=== PATIENT | male | born 1930 | race Hispanic/Latino ===

== ENCOUNTER 2017-08-05 06:00 | Day surgery (SDC) | payer MEDICARE ==
[2017-07-31 14:44] VITALS: BP 129/66
[2017-07-31 14:50] LABS: HEMATOCRIT 35.6 % (42-54); MEAN CORPUSCULAR HEMOGLOBIN 29.1 pg (27.0-33.0); MEAN CORPUSCULAR HGB CONC 33.5 g/dL (32.0-36.0); MEAN CORPUSCULAR VOLUME 86.9 fL (79-99); PLATELET COUNT (AUTO) 189 K/uL (130-400); RED CELL DISTRIBUTION WIDTH 16.2 % (11.0-15.5); WHITE BLOOD COUNT (AUTO) 7.2 K/uL (4.8-10.8)
[2017-07-31 14:51] LABS: APPEARANCE,URINE CLOUDY (CLEAR); BILIRUBIN,URINE LARGE (NEGATIVE); GLUCOSE, URINE (UA) 100 mg/dL (NEGATIVE); KETONES,URINE 15 mg/dL (NEGATIVE); LEUKOCYTE ESTERASE ,URINE LARGE (NEGATIVE); NITRATE,URINE POSITIVE (NEGATIVE); OCCULT BLOOD,URINE LARGE (NEGATIVE); PROTEIN,URINE >=300 (NEGATIVE); UROBILINOGEN,URINE >=8.0 mg/dL (0.2-1.0)
[2017-07-31 14:52] LABS: COLOR,URINE RED (YELLOW)
[2017-07-31 14:59] LABS: CREATININE 1.5 mg/dL (0.5-1.5); POTASSIUM 3.5 mmol/L (3.5-5.1)
[2017-07-31 15:02] LABS: RBC,URINE Full Field /HPF (0-1); WBC,URINE 0-1 /HPF (0-1)
[2017-07-31 15:03] LABS: BACTERIA,URINE Rare /HPF (None Seen); SQUAMOUS EPITHELIAL CELL,UR Rare /LPF (0-2)
[2017-07-31 15:03] LABS: INR 0.94 (0.85-1.15); PARTIAL THROMBOPLASTIN TIME 26.8 SEC (26.3-35.5); PROTHROMBIN TIME 9.9 SEC (9.6-11.6)
[~2017-08-05] VITALS: Ht 165.1 cm; Wt 77.0 kg
[2017-08-05] VITALS (15 sets, daily range): BP systolic 93–139; BP diastolic 53–74
[~2017-08-05 06:00] MED LIST: ASCO500C18 PO; CHOL200013 PO; FERROUS SULFATE PO; LEVO75TA10 PO; MELA10CA2 PO; MEMA5TAB15 PO; MIDO5TAB PO; PRAV20TA4 PO; RIVA4.6T TD; VITAMIN B12 PO; ZOLP5TAB8 PO
[2017-08-05] MEDS: MEROPENEM 1 GM VIAL IVP SCH ×2 (06:00→06:50)
[2017-08-05] MEDS ORDERED: ISOVUE-370 50ML VIAL IV ONE (06:47)
[2017-08-05] MEDS ORDERED: GLYCOPYRROLATE 0.2 MG/ML 5 ML VIAL ONE (06:55)
[2017-08-05] MEDS ORDERED: ONDANSETRON HCL 4 MG/2 ML VIAL ONE (06:55)
[2017-08-05] MEDS ORDERED: DEXAMETHASONE SOD PHOSPHATE 10MG/ML 1ML VIAL ONE (06:55)
[2017-08-05] MEDS ORDERED: SUCCINYLCHOLINE 200MG/10ML SYR ONE (06:55)
[2017-08-05] MEDS ORDERED: LIDOCAINE PF 2% 5ML ABBOJECT ONE (06:55)
[2017-08-05] MEDS ORDERED: FENTANYL CITRATE PF 50 MCG/1 ML 2ML VIAL ONE (06:56)
[2017-08-05] MEDS ORDERED: MIDAZOLAM HCL 1 MG/ML 2ML VIAL ONE (06:56)
[2017-08-05] MEDS ORDERED: PROPOFOL 10 MG/ML 20ML VIAL IV ONE (06:56)
[2017-08-05] MEDS: LACTATED RINGERS 1000ML 1,000 ML IV SCH ×2 (07:45→07:48)
[2017-08-05] MEDS ORDERED: MORPHINE SULFATE 2 MG/ML 1ML SYG ONE (07:59)
[2017-09-29] MEDS ORDERED: LEVOTHYROXINE PO (10:41)
== END 2017-08-05 09:50 | disposition home or self-care (01) ==
LOC: DAH 06:00
PROVIDERS: ATTEND Urology
DX: N21.0 Calculus in bladder (principal); N13.39 Other hydronephrosis; N28.9 Disorder of kidney and ureter, unspecified; C61 Malignant neoplasm of prostate; G30.8 Other Alzheimer's disease; N17.9 Acute kidney failure, unspecified; I10 Essential (primary) hypertension; N39.0 Urinary tract infection, site not specified; Z79.899 Other long term (current) drug therapy; I73.9 Peripheral vascular disease, unspecified
CPT/HCPCS: 36415; 52332; 71046; 74420; 80048; 81001; 85027; 85610; 85730; 87088 ×3; 88300; 93005; A4354; A4358; A4600; C1758 ×2; C1769; C2617 ×2; J0330; J1100; J2001; J2185; J2250; J2405; J2704; J3010; J3490; J7030; J7120 ×2; Q9967

== ENCOUNTER 2017-09-30 05:30 | Day surgery (SDC) | payer MEDICARE ==
[2017-09-29 10:07] VITALS: BP 123/70
[2017-09-29 10:14] LABS: APPEARANCE,URINE CLOUDY (CLEAR); BILIRUBIN,URINE SMALL (NEGATIVE); COLOR,URINE RED (YELLOW); GLUCOSE, URINE (UA) NEGATIVE (NEGATIVE); KETONES,URINE NEGATIVE (NEGATIVE); LEUKOCYTE ESTERASE ,URINE LARGE (NEGATIVE); NITRATE,URINE NEGATIVE (NEGATIVE); OCCULT BLOOD,URINE LARGE (NEGATIVE); PH,URINE 7.5 (5.0-8.0); PROTEIN,URINE 100 (NEGATIVE); UROBILINOGEN,URINE 0.2 mg/dL (0.2-1.0)
[2017-09-29 10:17] LABS: HEMATOCRIT 34.3 % (42-54); MEAN CORPUSCULAR HEMOGLOBIN 29.6 pg (27.0-33.0); MEAN CORPUSCULAR HGB CONC 33.9 g/dL (32.0-36.0); MEAN CORPUSCULAR VOLUME 87.3 fL (79-99); PLATELET COUNT (AUTO) 191 K/uL (130-400); RED BLOOD CELL COUNT(AUTO) 3.93 MIL/uL (4.50-6.20); RED CELL DISTRIBUTION WIDTH 16.8 % (11.0-15.5); WHITE BLOOD COUNT (AUTO) 11.6 K/uL (4.8-10.8)
[2017-09-29 10:19] LABS: RBC,URINE TNTC /HPF (0-1)
[2017-09-29 10:20] LABS: BACTERIA,URINE Rare /HPF (None Seen); SQUAMOUS EPITHELIAL CELL,UR Rare /HPF (0-2); WBC,URINE 51-100 /HPF (0-1)
[2017-09-29 10:23] LABS: CREATININE 1.9 mg/dL (0.5-1.5); POTASSIUM 3.8 mmol/L (3.5-5.1)
[2017-09-29 10:26] LABS: INR 0.97 (0.85-1.15); PARTIAL THROMBOPLASTIN TIME 27.1 SEC (26.3-35.5); PROTHROMBIN TIME 10.2 SEC (9.6-11.6)
[~2017-09-30] VITALS: Ht 165.1 cm; Wt 74.8 kg
[2017-09-30] VITALS (16 sets, daily range): BP systolic 93–133; BP diastolic 42–78
[~2017-09-30 05:30] MED LIST changes: -LEVO75TA10 PO; +LEVOTHYROXINE PO; -MELA10CA2 PO; -MIDO5TAB PO; -VITAMIN B12 PO
[2017-09-30] MEDS: GENTAMICIN SULFATE 240 MG in SODIUM CHLORIDE 0.9% 100 ML IV SCH ×2 (06:00→07:20)
[2017-09-30] MEDS: ZOSYN 3.375GM+NS 50ML 50 ML IV SCH ×2 (06:00→07:00)
[2017-09-30] MEDS: LACTATED RINGERS 1000ML 1,000 ML IV SCH ×2 (06:48→07:00)
[2017-09-30] MEDS ORDERED: FENTANYL CITRATE PF 50 MCG/1 ML 2ML VIAL ONE (06:53)
[2017-09-30] MEDS ORDERED: PROPOFOL 10 MG/ML 20ML VIAL IV ONE (06:53)
[2017-09-30] MEDS ORDERED: ISOVUE-370 50ML VIAL IV ONE (07:02)
[2017-09-30] MEDS ORDERED: NEOSTIGMINE 5MG/5ML SYR IV ONE (07:11)
[2017-09-30] MEDS ORDERED: ROCURONIUM BROMIDE 10MG/1ML 5ML VL ONE (07:11)
[2017-09-30] MEDS ORDERED: PHENYLEPHRINE HCL 10 MG/ML 1ML VIAL IV ONE (07:11)
[2017-09-30] MEDS ORDERED: SODIUM CHLORIDE 0.9% 10 ML VIAL ONE (07:11)
[2017-09-30] MEDS ORDERED: LIDOCAINE PF 2% 5ML ABBOJECT ONE (07:11)
[2017-09-30] MEDS ORDERED: GLYCOPYRROLATE 0.2 MG/ML 5 ML VIAL ONE (07:11)
[2017-09-30] MEDS ORDERED: MEPERIDINE-PF 25 MG/ML SYG ONE (08:39)
[2017-09-30] MEDS ORDERED: ACETAMINOPHEN-CODEINE 300/30MG TAB PO PRN (10:45)
== END 2017-09-30 11:00 | disposition home or self-care (01) ==
LOC: DAH 05:30
PROVIDERS: ATTEND Urology
DX: N13.30 Unspecified hydronephrosis (principal); C61 Malignant neoplasm of prostate; I10 Essential (primary) hypertension; G30.9 Alzheimer's disease, unspecified; D41.4 Neoplasm of uncertain behavior of bladder
CPT/HCPCS: 36415; 52204; 52332; 74420; 80048; 81001; 85027; 85610; 85730; 87088 ×3; 87186 ×2; 88304; 93005; A4354; A4358; A4930; A5113; C1758; C1769 ×3; C1877; C2617; J1580; J2001; J2175; J2370; J2543; J2704; J2710; J3010; J3490 ×2; J7030; Q9967

== ENCOUNTER 2017-11-18 05:30 | Day surgery (SDC) | payer MEDICARE ==
[2017-11-14 11:17] LABS: HEMATOCRIT 37.5 % (42-54); MEAN CORPUSCULAR HEMOGLOBIN 29.1 pg (27.0-33.0); MEAN CORPUSCULAR HGB CONC 33.1 g/dL (32.0-36.0); MEAN CORPUSCULAR VOLUME 87.7 fL (79-99); PLATELET COUNT (AUTO) 233 K/uL (130-400); RED BLOOD CELL COUNT(AUTO) 4.27 MIL/uL (4.50-6.20); RED CELL DISTRIBUTION WIDTH 16.6 % (11.0-15.5); WHITE BLOOD COUNT (AUTO) 8.5 K/uL (4.8-10.8)
[2017-11-14 11:23] VITALS: BP 105/60
[2017-11-14 11:31] LABS: CREATININE 1.3 mg/dL (0.5-1.5); POTASSIUM 3.9 mmol/L (3.5-5.1)
[2017-11-14 11:33] LABS: BILIRUBIN,URINE LARGE (NEGATIVE); GLUCOSE, URINE (UA) 100 mg/dL (NEGATIVE); KETONES,URINE 15 mg/dL (NEGATIVE); LEUKOCYTE ESTERASE ,URINE LARGE (NEGATIVE); NITRATE,URINE POSITIVE (NEGATIVE); OCCULT BLOOD,URINE LARGE (NEGATIVE); PH,URINE 6.5 (5.0-8.0); PROTEIN,URINE >=300 (NEGATIVE)
[2017-11-14 11:35] LABS: APPEARANCE,URINE CLOUDY (CLEAR); COLOR,URINE RED (YELLOW)
[2017-11-14 11:36] LABS: INR 0.96 (0.85-1.15); PARTIAL THROMBOPLASTIN TIME 27.3 SEC (26.3-35.5); PROTHROMBIN TIME 10.1 SEC (9.6-11.6)
[2017-11-14 12:08] LABS: BACTERIA,URINE Moderate /HPF (None Seen); RBC,URINE TNTC /HPF (0-1); WBC,URINE 26-50 /HPF (0-1)
[2017-11-18] VITALS (16 sets, daily range): BP systolic 100–135; BP diastolic 59–75
[~2017-11-18] VITALS: Ht 165.1 cm; Wt 72.6 kg
[2017-11-18] MEDS: ZOSYN 3.375GM+NS 50ML 50 ML IV SCH ×2 (05:00→06:50)
[2017-11-18] MEDS: LACTATED RINGERS 1000ML 1,000 ML IV SCH ×2 (06:23→06:50)
[2017-11-18] MEDS: GENTAMICIN SULFATE 240 MG in SODIUM CHLORIDE 0.9% 100 ML IV SCH ×2 (06:26→06:30)
[2017-11-18] MEDS ORDERED: ISOVUE-370 50ML VIAL IV ONE (06:45)
[2017-11-18] MEDS ORDERED: ONDANSETRON HCL 4 MG/2 ML VIAL ONE (06:51)
[2017-11-18] MEDS ORDERED: MIDAZOLAM HCL 1 MG/ML 2ML VIAL ONE (06:51)
[2017-11-18] MEDS ORDERED: LIDOCAINE PF 2% 5ML ABBOJECT ONE (06:51)
[2017-11-18] MEDS ORDERED: DEXAMETHASONE SOD PHOSPHATE 10MG/ML 1ML VIAL ONE (06:51)
[2017-11-18] MEDS ORDERED: GLYCOPYRROLATE 0.2 MG/ML 5 ML VIAL ONE (06:51)
[2017-11-18] MEDS ORDERED: PROPOFOL 10 MG/ML 20ML VIAL IV ONE (06:52)
[2017-11-18] MEDS ORDERED: FENTANYL CITRATE PF 50 MCG/1 ML 2ML VIAL ONE (06:52)
== END 2017-11-18 09:15 | disposition home or self-care (01) ==
LOC: DAH 05:30
PROVIDERS: ATTEND Urology
DX: C67.9 Malignant neoplasm of bladder, unspecified (principal); N13.30 Unspecified hydronephrosis; Z98.890 Other specified postprocedural states; Z79.899 Other long term (current) drug therapy; I10 Essential (primary) hypertension; G30.9 Alzheimer's disease, unspecified; F02.80 Dementia in other diseases classified elsewhere, unspecified severity, without behavioral disturbance, psychotic disturbance, mood disturbance, and anxiety; Z85.46 Personal history of malignant neoplasm of prostate; E66.9 Obesity, unspecified; I35.8 Other nonrheumatic aortic valve disorders; E03.9 Hypothyroidism, unspecified; E78.5 Hyperlipidemia, unspecified; D50.8 Other iron deficiency anemias
CPT/HCPCS: 36415; 51600; 52332; 71046; 74420; 80048; 81001; 85027; 85610; 85730; 87088 ×3; 87186 ×2; 93005; A4358; A4600; A4930; C1758; C1769; C2617 ×2; J1100; J1580; J2001; J2250; J2405; J2543; J2704; J3010; J3490; J7120 ×2; Q9967

== ENCOUNTER → 2018-06-12 | Outpatient (CLI) | payer MEDICARE ==
[~2018-06-12] VITALS: Ht 165.1 cm; Wt 73.9 kg
[~2018-06-12] MED LIST changes: -ASCO500C18 PO; -CHOL200013 PO; +ESCI10TA54 PO; +FERR-82 PO; -FERROUS SULFATE PO; +FURO20TA4 PO; +LEVO88TA7 PO; -LEVOTHYROXINE PO; +MELA10TA7 PO; +MIDO5TAB PO; +MULT1TAB66 PO; +MVI PO; -RIVA4.6T TD; +TRAZ-185 PO; -ZOLP5TAB8 PO
[2018-06-12 12:03] LABS: APPEARANCE,URINE CLEAR (CLEAR); BILIRUBIN,URINE SMALL (NEGATIVE); COLOR,URINE YELLOW (YELLOW); GLUCOSE, URINE (UA) NEGATIVE (NEGATIVE); HEMATOCRIT 40.8 % (42-54); KETONES,URINE NEGATIVE (NEGATIVE); LEUKOCYTE ESTERASE ,URINE MODERATE (NEGATIVE); MEAN CORPUSCULAR HEMOGLOBIN 28.7 pg (27.0-33.0); MEAN CORPUSCULAR HGB CONC 32.6 g/dL (32.0-36.0); MEAN CORPUSCULAR VOLUME 87.9 fL (79-99); NITRATE,URINE POSITIVE (NEGATIVE); OCCULT BLOOD,URINE LARGE (NEGATIVE); PLATELET COUNT (AUTO) 177 K/uL (130-400); PROTEIN,URINE >=300 (NEGATIVE); RED BLOOD CELL COUNT(AUTO) 4.64 MIL/uL (4.50-6.20); RED CELL DISTRIBUTION WIDTH 17.1 % (11.0-15.5); WHITE BLOOD COUNT (AUTO) 6.9 K/uL (4.8-10.8)
[2018-06-12 12:06] VITALS: BP 137/74
[2018-06-12 12:12] LABS: CREATININE 1.4 mg/dL (0.5-1.5); POTASSIUM 3.4 mmol/L (3.5-5.1); WBC,URINE TNTC /HPF (0-1)
[2018-06-12 12:13] LABS: BACTERIA,URINE Few /HPF (None Seen); SQUAMOUS EPITHELIAL CELL,UR 0-2 /HPF (0-2)
[2018-06-12 12:20] LABS: INR 0.97 (0.85-1.15); PARTIAL THROMBOPLASTIN TIME 28.9 SEC (26.3-35.5); PROTHROMBIN TIME 10.2 SEC (9.6-11.6)
== END ==
LOC: DAH 10:00 → EDSTATUS 11:30
PROVIDERS: ATTEND Urology
DX: Z01.818 Encounter for other preprocedural examination (principal)
CPT/HCPCS: 36415; 71046; 80048; 81001; 85027; 85610; 85730; 87088; 93005

== ENCOUNTER 2018-06-23 08:09 | Day surgery (SDC) | payer MEDICARE ==
[2018-06-23] VITALS (15 sets, daily range): BP systolic 100–127; BP diastolic 50–69
[~2018-06-23] VITALS: Ht 165.1 cm; Wt 73.9 kg
[~2018-06-23 08:09] MED LIST changes: -FURO20TA4 PO; -MVI PO
[2018-06-23] MEDS: ZOSYN 3.375GM+NS 50ML 50 ML IV SCH ×2 (08:30→12:50)
[2018-06-23] MEDS: GENTAMICIN SULFATE 240 MG in SODIUM CHLORIDE 0.9% 100 ML IV SCH ×2 (09:30→12:35)
[2018-06-23] MEDS: LACTATED RINGERS 1000ML 1,000 ML IV SCH ×2 (09:34→12:13)
--- NOTE | 2018-06-23 09:47 | NUR ---
VALUABLES: CLOTHING GIVEN TO FAMILY. NO OTHER VALUABLES BROUGHT TO HOSPITAL.
[2018-06-23] MEDS ORDERED: IOHEXOL-350 50ML VIAL IV ONE (10:15)
[2018-06-23] MEDS ORDERED: LIDOCAINE PF 2% 5ML ABBOJECT ONE ×3 (12:12→12:51)
[2018-06-23] MEDS ORDERED: DEXAMETHASONE SOD PHOSPHATE 10MG/ML 1ML VIAL ONE (12:12)
[2018-06-23] MEDS ORDERED: GLYCOPYRROLATE 1 MG/5 ML SYRINGE ONE (12:12)
[2018-06-23] MEDS ORDERED: ROCURONIUM 10MG/1ML SYR 10 MG/ML ML ONE ×2 (12:13→12:51)
[2018-06-23] MEDS ORDERED: PROPOFOL 10 MG/ML 20ML VIAL IV ONE ×2 (12:13→12:50)
[2018-06-23] MEDS ORDERED: NEOSTIGMINE 5MG/5ML SYR IV ONE (12:13)
[2018-06-23] MEDS ORDERED: MIDAZOLAM HCL 1 MG/ML 2ML VIAL ONE (12:13)
[2018-06-23] MEDS ORDERED: FENTANYL CITRATE PF 50 MCG/1 ML 2ML VIAL ONE (12:13)
[2018-06-23] MEDS ORDERED: EPHEDRINE SULFATE 50 MG/ML AMPULE ONE (12:35)
[2018-06-23] MEDS ORDERED: SUCCINYLCHOLINE CHLORIDE 20 MG/ML 10 ML VIAL ONE (12:51)
--- NOTE | 2018-06-23 15:30 | NUR ---
ASSESSMENT RECEIVED PT FROM PACU STAFF Caroline JACINTO RN. PT [id number]. 18FR FC DRAINING TO GRAVITY AT BEDSIDE WITH CLEAR PINK URINE IN BAG. DENIES ANY DISCOMFORT AT THIS TIME.
--- NOTE | 2018-06-23 16:24 | NUR ---
DISCHARGE PTS AND DAUGHTER GIVEN POST OP INSTRUCTIONS ON CHANGING DARLING TO LEG BAG USING ASEPTIC TECHNIQUE. BOTH VERBALIZED UNDERSTANDING. PRESCRIPTION GIVEN TO . NO OTHER QUESTIONS AT THIS TIME.
== END 2018-06-23 16:30 | disposition home or self-care (01) ==
LOC: DAH 08:09
PROVIDERS: ATTEND Urology
DX: N13.30 Unspecified hydronephrosis (principal); N35.919 Unspecified urethral stricture, male, unspecified site; I10 Essential (primary) hypertension; C61 Malignant neoplasm of prostate; Z79.899 Other long term (current) drug therapy; G30.9 Alzheimer's disease, unspecified; F02.80 Dementia in other diseases classified elsewhere, unspecified severity, without behavioral disturbance, psychotic disturbance, mood disturbance, and anxiety
CPT/HCPCS: 52332; 74420; 87071 ×2; 87077 ×3; 87186 ×3; 87205 ×2; A4358; A4600; C1726; C1758; C1769; C2617; J0330; J1100; J1580; J2001 ×3; J2543; J2704 ×2; J2710; J3010; J3490 ×2; J7030; J7120; Q9967; A4218; J2250

== ENCOUNTER 2018-08-18 07:03 | Day surgery (SDC) | payer MEDICARE ==
[2018-08-14 10:55] LABS: BASOPHILS % (AUTO) 1.2 % (0.0-5.0); EOSINOPHILS % (AUTO) 4.1 % (0.0-8.0); LYMPHOCYTES % (AUTO) 15.4 % (21.0-51.0); MEAN CORPUSCULAR HEMOGLOBIN 29.4 pg (27.0-33.0); MEAN CORPUSCULAR HGB CONC 32.8 g/dL (32.0-36.0); MEAN CORPUSCULAR VOLUME 89.6 fL (79-99); MONOCYTES % (AUTO) 10.7 % (3.0-13.0); NEUTROPHILS % (AUTO) 68.6 % (40.0-77.0); PLATELET COUNT (AUTO) 177 K/uL (130-400); RED BLOOD CELL COUNT(AUTO) 4.69 MIL/uL (4.50-6.20); RED CELL DISTRIBUTION WIDTH 17.7 % (11.0-15.5); WHITE BLOOD COUNT (AUTO) 5.8 K/uL (4.8-10.8)
[2018-08-14 11:03] LABS: APPEARANCE,URINE TURBID (CLEAR); BILIRUBIN,URINE NEGATIVE (NEGATIVE); COLOR,URINE YELLOW (YELLOW); GLUCOSE, URINE (UA) NEGATIVE (NEGATIVE); KETONES,URINE NEGATIVE (NEGATIVE); LEUKOCYTE ESTERASE ,URINE LARGE (NEGATIVE); NITRATE,URINE POSITIVE (NEGATIVE); OCCULT BLOOD,URINE LARGE (NEGATIVE); PROTEIN,URINE 100 (NEGATIVE); UROBILINOGEN,URINE 0.2 mg/dL (0.2-1.0)
[2018-08-14 11:05] LABS: INR 0.99 (0.85-1.15); PARTIAL THROMBOPLASTIN TIME 29.6 SEC (26.3-35.5); PROTHROMBIN TIME 10.4 SEC (9.6-11.6)
[2018-08-14 11:08] LABS: CREATININE 1.4 mg/dL (0.5-1.5); POTASSIUM 3.8 mmol/L (3.5-5.1)
[2018-08-14 11:20] LABS: BACTERIA,URINE Few /HPF (None Seen); RBC,URINE 51-100 /HPF (0-1); SQUAMOUS EPITHELIAL CELL,UR Rare /HPF (0-2); WBC,URINE TNTC /HPF (0-1)
--- NOTE | 2018-08-17 17:56 | NUR ---
INFORMED DR. MOISE REGARDING ELEVATED URINE LABS, NO NEW ORDERS RECEIVED, OK TO CONTINUE WITH PLANNED PROCEDURE.
[2018-08-18] VITALS (14 sets, daily range): BP systolic 103–136; BP diastolic 51–89
[~2018-08-18] VITALS: Ht 167.6 cm; Wt 70.9 kg
[~2018-08-18 07:03] MED LIST changes: +GENTAMICIN SULFATE 240 MG in SODIUM CHLORIDE 0.9% 100 ML IV SCH; +LACTATED RINGERS 1000ML 1,000 ML IV SCH; +ZOSYN 3.375GM+NS 50ML 50 ML IV SCH
[2018-08-18] MEDS ORDERED: ESCI10TA54 PO (08:45)
[2018-08-18] MEDS ORDERED: FERR325T22 PO (08:45)
[2018-08-18] MEDS ORDERED: LEVO75TA10 PO (08:45)
[2018-08-18] MEDS ORDERED: IRON PO (08:52)
[2018-08-18] MEDS ORDERED: iron (08:52)
[2018-08-18] MEDS ORDERED: IOHEXOL-350 50ML VIAL IV ONE (09:45)
[2018-08-18] MEDS ORDERED: FENTANYL CITRATE PF 50 MCG/1 ML 2ML VIAL ONE (10:17)
[2018-08-18] MEDS ORDERED: PROPOFOL 10 MG/ML 20ML VIAL IV ONE (10:17)
[2018-08-18] MEDS ORDERED: LIDOCAINE PF 2% 5ML ABBOJECT ONE (10:18)
[2018-08-18] MEDS ORDERED: ROCURONIUM 10MG/1ML SYR 10 MG/ML ML ONE (10:19)
[2018-08-18] MEDS ORDERED: EPHEDRINE SULFATE 50 MG/ML AMPULE ONE (10:50)
--- NOTE | 2018-08-18 12:23 | NUR ---
RECEIVE PT RECEIVED FROM PACU VIA STRETCHER AWAKE ALERT ORIENTED TO NAME AND DATE OF . DARLING CATH 18FR IN [address] DRAINING BLOOD TINGE URINE, NO CLOTS NOTED. ABDOMEN SOFT, BLADDER NOT DISTENDED. CALL ACEVEDO WITHIN REACH, WILL CALL FOR FAMILY TO COME IN TO ROOM. ENCOURAGED TO DRINK FLUIDS. TOLERATING WELL.
--- NOTE | 2018-08-18 13:05 | NUR ---
DISCHARGE PT DISCHARGED VIA WHEELCHAIR WITH DAUGHTER BRENDA. DARLING CATHETER CARE INSTRUCTIONS GIVEN/DEMONSTRATED TO DAUGHTER, DARLING BAG CHANGED TO LEG BAG, DRAINING BLOOD TINGE URINE, NO CLOTS NOTED, SECURED DARLING CATH IN PLACE. DISCHARGE INSTRUCTIONS GIVEN TO DAUGHTER/POA BRENDA, VERBALIZED UNDERSTANDING. ALSO INSTRUCTED BRENDA TO ENCOURAGE PT TO DRINK ORAL FLUIDS TOLERATED SO TO CLEAR UP URINE AND PREVENT CLOTS. VERBALIZED UNDERSTANDING.
== END 2018-08-18 13:05 | disposition home or self-care (01) ==
LOC: DAH 07:03
PROVIDERS: ATTEND Urology
DX: C67.9 Malignant neoplasm of bladder, unspecified (principal); C61 Malignant neoplasm of prostate; N13.30 Unspecified hydronephrosis; Z79.899 Other long term (current) drug therapy; Z98.890 Other specified postprocedural states; G30.9 Alzheimer's disease, unspecified; F02.80 Dementia in other diseases classified elsewhere, unspecified severity, without behavioral disturbance, psychotic disturbance, mood disturbance, and anxiety; I10 Essential (primary) hypertension; N39.0 Urinary tract infection, site not specified; Z79.01 Long term (current) use of anticoagulants
CPT/HCPCS: 36415; 52332; 71046; 74420; 80048; 81001; 85025; 85610; 85730; 87071 ×2; 87077 ×4; 87088; 87186 ×4; 87205 ×2; 93005; A4354; A4358; C1758 ×2; C1769 ×2; C2617; J1580; J2001; J2543; J2704; J3010; J3490; J7120; Q9967

== ENCOUNTER 2018-10-20 16:03 | Day surgery (SDC) | payer MEDICARE ==
[2018-10-19 09:25] VITALS: BP 90/54
[2018-10-19 09:52] LABS: HEMATOCRIT 42.8 % (42-54); MEAN CORPUSCULAR HEMOGLOBIN 30.8 pg (27.0-33.0); MEAN CORPUSCULAR HGB CONC 33.5 g/dL (32.0-36.0); PLATELET COUNT (AUTO) 186 K/uL (130-400); RED BLOOD CELL COUNT(AUTO) 4.65 MIL/uL (4.50-6.20); RED CELL DISTRIBUTION WIDTH 15.5 % (11.0-15.5); WHITE BLOOD COUNT (AUTO) 8.7 K/uL (4.8-10.8)
[2018-10-19 09:53] LABS: APPEARANCE,URINE TURBID (CLEAR); BILIRUBIN,URINE NEGATIVE (NEGATIVE); COLOR,URINE YELLOW (YELLOW); GLUCOSE, URINE (UA) NEGATIVE (NEGATIVE); KETONES,URINE NEGATIVE (NEGATIVE); LEUKOCYTE ESTERASE ,URINE MODERATE (NEGATIVE); NITRATE,URINE POSITIVE (NEGATIVE); OCCULT BLOOD,URINE LARGE (NEGATIVE); PH,URINE 8.5 (5.0-8.0); PROTEIN,URINE 100 mg/dL (NEGATIVE); UROBILINOGEN,URINE 0.2 mg/dL (0.2-1.0)
[2018-10-19 10:00] LABS: CREATININE 1.2 mg/dL (0.5-1.5); POTASSIUM 3.4 mmol/L (3.5-5.1)
[2018-10-19 10:03] LABS: BACTERIA,URINE Many /HPF (None Seen); MUCUS,URINE Few LPF (None Seen); SQUAMOUS EPITHELIAL CELL,UR Few /HPF (0-2); WBC,URINE TNTC /HPF (0-1)
[2018-10-19 10:04] LABS: INR 1.01 (0.85-1.15); PROTHROMBIN TIME 10.6 SEC (9.6-11.6)
--- NOTE | 2018-10-19 14:00 | NUR ---
EKG ABNORMAL EKG REPORTED TO DR. WATTERS, NO FURTHER ORDERS GIVEN, MAY PROCEED WITH PLANNED PROCEDURE.
--- NOTE | 2018-10-19 15:30 | NUR ---
CONTACT PRECAUTION PT HAS HX OF ESBL-GNB, E. COLI. PT PLACED ON ISOLATION CONTACT. SHARLENE STANFORD, OR PUBLIC HEALTH DIRECTOR, CATY COOPER OF INFECTION CONTROL NOTIFIED. ALSO NOTIFIED DR. MOISE'S PT, SPOKE TO KONRAD, STATED SHE WILL INFORM DR. MOISE. Addendum: 10/20/18 at 1647 by JUAN GARIBAY RN RN TYPO ERROR- ALSO NOTIFIED DR. MOISE'S OFFICE (INSTEAD OF DR. MOISE'S PT)
--- NOTE | 2018-10-19 16:53 | NUR ---
SPOKE TO KONRAD AT OFFICE. ABNORMAL UA AND POTASSIUM REPORTED TO DR. MOISE, NO NEW ORDERS, OK TO PROCEED WITH PROCEDURE.
[2018-10-20] VITALS (15 sets, daily range): BP systolic 100–162; BP diastolic 50–72
[~2018-10-20] VITALS: Ht 163.8 cm; Wt 69.0 kg
[2018-10-20] MEDS: ZOSYN 3.375GM+NS 50ML 50 ML IV SCH ×3 (11:30→11:45)
[2018-10-20] MEDS: GENTAMICIN SULFATE 240 MG in SODIUM CHLORIDE 0.9% 100 ML IV SCH ×3 (11:30→12:10)
[2018-10-20 12:33] LABS: APPEARANCE,URINE CLOUDY (CLEAR); BILIRUBIN,URINE NEGATIVE (NEGATIVE); GLUCOSE, URINE (UA) NEGATIVE (NEGATIVE); KETONES,URINE NEGATIVE (NEGATIVE); LEUKOCYTE ESTERASE ,URINE LARGE (NEGATIVE); NITRATE,URINE POSITIVE (NEGATIVE); OCCULT BLOOD,URINE LARGE (NEGATIVE); PROTEIN,URINE 100 mg/dL (NEGATIVE)
[2018-10-20 12:33] LABS: APPEARANCE,URINE CLOUDY (CLEAR); BILIRUBIN,URINE NEGATIVE (NEGATIVE); COLOR,URINE YELLOW (YELLOW); GLUCOSE, URINE (UA) NEGATIVE (NEGATIVE); KETONES,URINE NEGATIVE (NEGATIVE); LEUKOCYTE ESTERASE ,URINE LARGE (NEGATIVE); NITRATE,URINE POSITIVE (NEGATIVE); OCCULT BLOOD,URINE LARGE (NEGATIVE); PH,URINE 7.5 (5.0-8.0); PROTEIN,URINE 100 mg/dL (NEGATIVE); UROBILINOGEN,URINE 0.2 mg/dL (0.2-1.0)
[2018-10-20 12:35] LABS: COLOR,URINE ORANGE (YELLOW)
[2018-10-20 12:39] LABS: BACTERIA,URINE Many /HPF (None Seen); RBC,URINE TNTC /HPF (0-1); SQUAMOUS EPITHELIAL CELL,UR Rare /HPF (0-2)
[2018-10-20 12:40] LABS: WBC,URINE TNTC /HPF (0-1)
[2018-10-20 13:20] LABS: BACTERIA,URINE Moderate /HPF (None Seen); RBC,URINE 26-50 /HPF (0-1); SQUAMOUS EPITHELIAL CELL,UR 0-2 /HPF (0-2)
--- NOTE | 2018-10-20 14:02 | NUR ---
RECEIVE PT RECEIVED FROM PACU VIA STRETCHER AWAKE ALERT ORIENTED. PT STABLE. NOT IN ANY APPARENT DISTRESS. 18FR DARLING CATH IN PLACE DRAINING CLEAR LIGHT PINK URINE, NO CLOTS NOTED, 400 ML IN URINE BAG. CALLED DAUGHTER ROHIT TO COME IN TO ROOM WITH PT. CALL ACEVEDO WITHIN REACH.
--- NOTE | 2018-10-20 14:50 | NUR ---
DISCHARGE PT DISCHARGED VIA WHEELCHAIR WITH DAUGHTER. PT STABLE. NO COMPLAINTS MADE. DISCHARGE INSTRUCTIONS GIVEN TO DAUGHTER, ALSO DEMONSTRATED TO DAUGHTER ON DARLING CATH HOME CARE. VERBALIZED UNDERSTANDING. URINE BAG CHANGED TO LEG BAG PRIOR TO DISCHARGE, DRAINING LIGHT PINK URINE, CLEAR, NO CLOTS.
[~2018-10-20 16:03] MED LIST changes: +EPHEDRINE SULFATE 50 MG/ML AMPULE ONE; +FENTANYL CITRATE PF 50 MCG/1 ML 2ML VIAL ONE; -FERR-82 PO; -GENTAMICIN SULFATE 240 MG in SODIUM CHLORIDE 0.9% 100 ML IV SCH; +IOHEXOL-350 50ML VIAL IV ONE; +IRON PO; +LIDOCAINE PF 2% 5ML ABBOJECT ONE; +PROPOFOL 10 MG/ML 20ML VIAL IV ONE; -TRAZ-185 PO; -ZOSYN 3.375GM+NS 50ML 50 ML IV SCH
== END 2018-10-20 16:04 | disposition home or self-care (01) ==
LOC: DAH 16:03
PROVIDERS: ATTEND Urology
DX: N35.814 Other anterior urethral stricture, male (principal); N13.39 Other hydronephrosis; G30.9 Alzheimer's disease, unspecified; F02.80 Dementia in other diseases classified elsewhere, unspecified severity, without behavioral disturbance, psychotic disturbance, mood disturbance, and anxiety; Z98.890 Other specified postprocedural states; I10 Essential (primary) hypertension; Z79.899 Other long term (current) drug therapy; Z79.01 Long term (current) use of anticoagulants
CPT/HCPCS: 36415; 52281; 74420; 80048; 81001 ×3; 85027; 85610; 85730; 87088; 93005; A4354; A4358; A4600; A4649; A5113; C1758 ×2; C1769 ×3; C2617; J1580; J2001; J2543 ×2; J2704; J3010; J3490; J7120 ×2; Q9967

== ENCOUNTER 2018-12-22 10:06 | Day surgery (SDC) | payer MEDICARE ==
[2018-12-18 11:00] LABS: HEMATOCRIT 40.6 % (42-54); MEAN CORPUSCULAR HEMOGLOBIN 30.2 pg (27.0-33.0); MEAN CORPUSCULAR HGB CONC 32.7 g/dL (32.0-36.0); MEAN CORPUSCULAR VOLUME 92.2 fL (79-99); PLATELET COUNT (AUTO) 271 K/uL (130-400); RED CELL DISTRIBUTION WIDTH 13.8 % (11.0-15.5); WHITE BLOOD COUNT (AUTO) 9.5 K/uL (4.8-10.8)
[2018-12-18 11:02] LABS: APPEARANCE,URINE TURBID (CLEAR); BILIRUBIN,URINE NEGATIVE (NEGATIVE); COLOR,URINE YELLOW (YELLOW); GLUCOSE, URINE (UA) NEGATIVE (NEGATIVE); KETONES,URINE NEGATIVE (NEGATIVE); LEUKOCYTE ESTERASE ,URINE LARGE (NEGATIVE); NITRATE,URINE NEGATIVE (NEGATIVE); OCCULT BLOOD,URINE LARGE (NEGATIVE); PH,URINE 7.5 (5.0-8.0); PROTEIN,URINE 100 mg/dL (NEGATIVE)
[2018-12-18 11:10] LABS: CREATININE 1.4 mg/dL (0.5-1.5); POTASSIUM 3.5 mmol/L (3.5-5.1)
[2018-12-18 11:14] VITALS: BP 119/67
[2018-12-18 11:35] LABS: BACTERIA,URINE Many /HPF (None Seen); WBC,URINE TNTC /HPF (0-1)
[2018-12-18 11:36] LABS: SQUAMOUS EPITHELIAL CELL,UR Rare /HPF (0-2)
[2018-12-18 11:39] LABS: INR 1.03 (0.85-1.15); PARTIAL THROMBOPLASTIN TIME 32.1 SEC (26.3-35.5); PROTHROMBIN TIME 10.8 SEC (9.6-11.6)
--- NOTE | 2018-12-21 16:00 | NUR ---
ekg abnormal ekg reported to Dr. Chakraborty. message left on his cell phone. awaiting for further orders if any
--- NOTE | 2018-12-21 16:00 | NUR ---
LABS ABNORMAL UA REPORTED TO DR. MOISE. MESSAGE LEFT WITH CAROL..
--- NOTE | 2018-12-21 16:06 | NUR ---
ekg as per Dr. Mylene preston to proceed with sx, no further orders given.
[~2018-12-22] VITALS: Ht 167.6 cm; Wt 68.7 kg
[2018-12-22] VITALS (18 sets, daily range): BP systolic 95–141; BP diastolic 54–78
[~2018-12-22 10:06] MED LIST changes: +ALPR0.255 PO; -EPHEDRINE SULFATE 50 MG/ML AMPULE ONE; -ESCI10TA54 PO; -FENTANYL CITRATE PF 50 MCG/1 ML 2ML VIAL ONE; +GENTAMICIN SULFATE 240 MG in SODIUM CHLORIDE 0.9% 100 ML IV SCH; -IOHEXOL-350 50ML VIAL IV ONE; -LACTATED RINGERS 1000ML 1,000 ML IV SCH; -LIDOCAINE PF 2% 5ML ABBOJECT ONE; -MULT1TAB66 PO; -PROPOFOL 10 MG/ML 20ML VIAL IV ONE
[2018-12-22] MEDS ORDERED: LACTATED RINGERS 1000ML 1,000 ML IV ONE (11:25)
[2018-12-22] MEDS: ZOSYN 3.375GM+NS 50ML 50 ML IV SCH ×2 (11:30→14:40)
[2018-12-22] MEDS ORDERED: IOHEXOL-350 50ML VIAL IV ONE (11:50)
[2018-12-22] MEDS ORDERED: LIDOCAINE PF 2% 5ML ABBOJECT ONE (14:14)
[2018-12-22] MEDS ORDERED: SUCCINYLCHOLINE 200MG/10ML SYR ONE ×2 (14:14→14:18)
[2018-12-22] MEDS ORDERED: DEXAMETHASONE SOD PHOSPHATE 10MG/ML 1ML VIAL ONE ×2 (14:14→14:18)
[2018-12-22] MEDS ORDERED: MIDAZOLAM HCL 1 MG/ML 2ML VIAL ONE (14:14)
[2018-12-22] MEDS ORDERED: FENTANYL CITRATE PF 50 MCG/1 ML 2ML VIAL ONE (14:15)
[2018-12-22] MEDS ORDERED: ONDANSETRON HCL 4 MG/2 ML VIAL ONE (14:15)
[2018-12-22] MEDS ORDERED: GLYCOPYRROLATE 1 MG/5 ML SYRINGE ONE (14:15)
[2018-12-22] MEDS ORDERED: ROCURONIUM 10MG/1ML SYR 10 MG/ML ML ONE (14:15)
[2018-12-22] MEDS ORDERED: PROPOFOL 10 MG/ML 20ML VIAL IV ONE (14:15)
[2018-12-22] MEDS ORDERED: NEOSTIGMINE 5MG/5ML SYR IV ONE (14:15)
--- NOTE | 2018-12-22 17:50 | NUR ---
PT DISCHARGED HOME, TOLERATING CLEAR LIQUIDS, AMBULATING WELL WITH STANDBY ASSISTANCE. PT DENIES ANY SEVERE PAIN, NAUSEA, OR DIZZINESS. DARLING CATHETER SWITCHED TO LEG BAG PRIOR TO DISCHARGE AND SECURED WELL WITH LEG STRAP. PT SENT HOME WITH DARLING FOR HOME USE. FAMILY INSTRUCTED IN DARLING CARE. DAUGHTER REPORTS BEING FAMILIAR WITH DARLING CARE. URINE CONTINUES TO BE RED TINTED. FAMILY REMINDED TO NOTIFY DR IF BLEEDING GOT WORSE/DARKER OR URINE BEGAN TO HAVE CLOTS. PRESCRIPTIONS GIVEN TO DAUGHTER.
== END 2018-12-22 17:50 | disposition home or self-care (01) ==
LOC: DAH 10:06
PROVIDERS: ATTEND Urology
DX: T83.89XA Other specified complication of genitourinary prosthetic devices, implants and grafts, initial encounter (principal); Y83.8 Other surgical procedures as the cause of abnormal reaction of the patient, or of later complication, without mention of misadventure at the time of the procedure; N13.30 Unspecified hydronephrosis; N35.819 Other urethral stricture, male, unspecified site; I10 Essential (primary) hypertension; G30.8 Other Alzheimer's disease; F02.80 Dementia in other diseases classified elsewhere, unspecified severity, without behavioral disturbance, psychotic disturbance, mood disturbance, and anxiety; F41.9 Anxiety disorder, unspecified; F32.9 Major depressive disorder, single episode, unspecified; C61 Malignant neoplasm of prostate; C67.9 Malignant neoplasm of bladder, unspecified; Z79.899 Other long term (current) drug therapy; Z98.890 Other specified postprocedural states; Z83.3 Family history of diabetes mellitus; Z82.49 Family history of ischemic heart disease and other diseases of the circulatory system
CPT/HCPCS: 36415; 52332; 74420; 80048; 85027; 81001; 85610; 85730; 87071; 87077 ×2; 87088; 87186 ×2; 87205; 93005; 96365; A4354; A4358; A4600; A4649; C1758 ×3; C1769 ×3; C2617; J0330 ×2; J1100 ×2; J1580; J2001; J2405; J2543; J2704; J2710; J3010; J3490; J7030; J7120; Q9967; J2250

== ENCOUNTER → 2019-01-14 | Outpatient (CLI) | payer MEDICARE ==
[~2019-01-14] MED LIST changes: -GENTAMICIN SULFATE 240 MG in SODIUM CHLORIDE 0.9% 100 ML IV SCH
== END | disposition home or self-care (01) ==
LOC: RAH 07:40
PROVIDERS: ATTEND Family Medicine
DX: G31.89 Other specified degenerative diseases of nervous system (principal); R90.82 White matter disease, unspecified; W19.XXXA Unspecified fall, initial encounter; Y93.89 Activity, other specified; Y92.89 Other specified places as the place of occurrence of the external cause; Y99.8 Other external cause status
CPT/HCPCS: 70450

== ENCOUNTER 2019-03-09 10:42 | Day surgery (SDC) | payer MEDICARE ==
[2019-03-08 11:02] LABS: APPEARANCE,URINE TURBID (CLEAR); BILIRUBIN,URINE NEGATIVE (NEGATIVE); COLOR,URINE YELLOW (YELLOW); GLUCOSE, URINE (UA) NEGATIVE (NEGATIVE); KETONES,URINE NEGATIVE (NEGATIVE); LEUKOCYTE ESTERASE ,URINE LARGE (NEGATIVE); NITRATE,URINE POSITIVE (NEGATIVE); OCCULT BLOOD,URINE LARGE (NEGATIVE); PH,URINE 6.5 (5.0-8.0); PROTEIN,URINE 100 mg/dL (NEGATIVE); UROBILINOGEN,URINE 0.2 mg/dL (0.2-1.0)
[2019-03-08 11:03] LABS: MEAN CORPUSCULAR HEMOGLOBIN 30.4 pg (27.0-33.0); MEAN CORPUSCULAR HGB CONC 33.3 g/dL (32.0-36.0); MEAN CORPUSCULAR VOLUME 91.3 fL (79-99); PLATELET COUNT (AUTO) 158 K/uL (130-400); RED BLOOD CELL COUNT(AUTO) 4.38 MIL/uL (4.50-6.20); RED CELL DISTRIBUTION WIDTH 16.3 % (11.0-15.5); WHITE BLOOD COUNT (AUTO) 7.3 K/uL (4.8-10.8)
[2019-03-08 11:16] VITALS: BP 93/54
[2019-03-08 11:19] LABS: CREATININE 1.6 mg/dL (0.5-1.5); POTASSIUM 3.5 mmol/L (3.5-5.1)
[2019-03-08 11:29] LABS: BACTERIA,URINE Many /HPF (None Seen); SQUAMOUS EPITHELIAL CELL,UR Few /HPF (0-2); WBC,URINE TNTC /HPF (0-1)
[2019-03-08 11:45] LABS: INR 1.01 (0.85-1.15); PARTIAL THROMBOPLASTIN TIME 27.5 SEC (26.3-35.5); PROTHROMBIN TIME 10.6 SEC (9.6-11.6)
--- NOTE | 2019-03-08 12:10 | NUR ---
ABNORMAL EKG INFORMED DR WATTERS REGARDING PATIENT'S ABNORMAL EKG. PER DR WATTERS, EKG LOOKS OK AND MAY PROCEED WITH SCHEDULED SURGERY.
[2019-03-08] MEDS: GENTAMICIN SULFATE 240 MG in SODIUM CHLORIDE 0.9% 100 ML IV SCH (12:30)
--- NOTE | 2019-03-08 16:02 | NUR ---
ABNORMAL LABS BMP AND UA RESULTS FAXED TO DR. MOISE'S OFFICE, ATTN TO DARYL. SPOKE TO DR. SUMA BUTLER'S STAFF. Addendum: 03/08/19 at 1607 by JUAN GARIBAY RN RN WAITING PULP COOKER BACK FOR ORDERS.
[~2019-03-09] VITALS: Ht 165.1 cm; Wt 68.4 kg
[2019-03-09] VITALS (17 sets, daily range): BP systolic 113–132; BP diastolic 60–77
[~2019-03-09 10:42] MED LIST changes: +ESCI10TA54 PO; +LACTATED RINGERS 1000ML 1,000 ML IV SCH; -MIDO5TAB PO; +MIDO5TAB4 PO; -PRAV20TA4 PO
[2019-03-09] MEDS ORDERED: ZOSYN 3.375GM+NS 50ML 50 ML IV ONE (11:00)
[2019-03-09] MEDS ORDERED: IOHEXOL-350 50ML VIAL IV ONE (12:02)
[2019-03-09] MEDS ORDERED: LIDOCAINE PF 2% 5ML ABBOJECT ONE (12:40)
[2019-03-09] MEDS ORDERED: PROPOFOL 10 MG/ML 20ML VIAL IV ONE (12:41)
[2019-03-09] MEDS ORDERED: FENTANYL CITRATE PF 50 MCG/1 ML 2ML VIAL ONE (12:41)
[2019-03-09] MEDS: GENTAMICIN SULFATE 240 MG in SODIUM CHLORIDE 0.9% 100 ML IV SCH (13:40)
[2019-03-09] MEDS ORDERED: GLYCOPYRROLATE 1 MG/5 ML SYRINGE ONE (13:42)
[2019-03-09] MEDS ORDERED: EPHEDRINE SULFATE 50 MG/ML AMPULE ONE (13:43)
[2019-03-09] MEDS ORDERED: MEROPENEM 1 GM VIAL ONE (14:33)
--- NOTE | 2019-03-09 15:45 | NUR ---
PATIENT ARRIVED PATIENT BROUGHT TO DAY PATIENT ROOM 4 VIA BED BY KENNETH NIX.PATIENT AA0,3, RESPIRATIONS UNLABORED, VITALS SIGNS STABLE. PATIENT DENIES ANY PAIN AT THIS TIME. [address] WAY DARLING CATHETER IN PLACE WITH CONTINUOUS BLADDER IRRIGATION. DARLING CATHETER WITH PINK TINGED URINE IN BAG (300CC). SMALL AMOUNT OF BRIGHT RED BLOOD NOTED AT DARLING INSERTION SITE, BUT NOT ACTIVELY BLEEDING. SIDERAILS UP X2, BED IN LOWEST POSITION, CALL ACEVEDO IN REACH.
--- NOTE | 2019-03-09 16:30 | NUR ---
DISCHARGE INSTRUCTIONS DISCHARGE INSTRUCTIONS PROVIDED TO PATIENT'S DAUGHTER, FOLLOW UP APPOINTMENT WITH DR MOISE PROVIDED WELL. HANDOUTS REGARDING DARLING CATHETER CARE GIVEN AND DARLING CARE EXPLAINED TO PATIENT'S CAREGIVER. LEG BAG APPLIED TO PATIENT AT THIS TIME AND INSTRUCTED REAL ESTATE PROFESSOR ON HOW TO APPLY LEG BAG AND DRAIN DARLING BAG AND LEG BAG, CAREGIVER VERBALIZED UNDERSTANDING. DARLING DRAINING CLEAR YELLOW URINE. EXTRA DARLING BAG PROVIDED TO PATIENT. ANSWERED ALL QUESTIONS/CONCERNS.
--- NOTE | 2019-03-09 16:45 | NUR ---
PATIENT DISCHARGED PATIENT DISCHARGED FROM FACILITY VIA WHEEL CHAIR BY GAVIN ALFONSO. PATIENT ASSISTED INTO PRIVATE VEHICLE AND DRIVEN HOME BY FAMILY MEMBER.
== END 2019-03-09 16:45 | disposition home or self-care (01) ==
LOC: DAH 10:42
PROVIDERS: ATTEND Urology
DX: N13.39 Other hydronephrosis (principal); N35.819 Other urethral stricture, male, unspecified site; N30.40 Irradiation cystitis without hematuria; F41.9 Anxiety disorder, unspecified; F32.9 Major depressive disorder, single episode, unspecified; I10 Essential (primary) hypertension; G30.9 Alzheimer's disease, unspecified; F02.80 Dementia in other diseases classified elsewhere, unspecified severity, without behavioral disturbance, psychotic disturbance, mood disturbance, and anxiety; Z98.890 Other specified postprocedural states; Z88.1 Allergy status to other antibiotic agents; Z88.8 Allergy status to other drugs, medicaments and biological substances; Z79.899 Other long term (current) drug therapy; Z87.891 Personal history of nicotine dependence; Z90.49 Acquired absence of other specified parts of digestive tract; Z98.49 Cataract extraction status, unspecified eye; Z82.49 Family history of ischemic heart disease and other diseases of the circulatory system; Z83.3 Family history of diabetes mellitus
CPT/HCPCS: 36415; 52332; 71046; 74420; 80048; 81001; 85027; 85610; 85730; 87071; 87077 ×2; 87088; 87186 ×2; 88300; 93005; 96365; 96366 ×2; A4215; A4221; A4222; A4223; A4354; A4358; A4600; A4606; A4649; A4663; A5113; A6260; C1758; C1769 ×3; C2617; J1580; J2001; J2185; J2543; J2704; J3010; J3490 ×2; J7120 ×2; Q9967; 87205

== ENCOUNTER 2019-05-11 11:44 | Day surgery (SDC) | payer MEDICARE ==
[2019-05-10 11:17] VITALS: BP 109/57
[2019-05-10 11:17] LABS: HEMATOCRIT 38.8 % (42-54); MEAN CORPUSCULAR HEMOGLOBIN 30.3 pg (27.0-33.0); MEAN CORPUSCULAR HGB CONC 33.3 g/dL (32.0-36.0); MEAN CORPUSCULAR VOLUME 90.8 fL (79-99); PLATELET COUNT (AUTO) 207 K/uL (130-400); RED BLOOD CELL COUNT(AUTO) 4.27 MIL/uL (4.50-6.20); RED CELL DISTRIBUTION WIDTH 15.1 % (11.0-15.5); WHITE BLOOD COUNT (AUTO) 10.1 K/uL (4.8-10.8)
[2019-05-10 11:23] LABS: APPEARANCE,URINE TURBID (CLEAR); BILIRUBIN,URINE NEGATIVE (NEGATIVE); COLOR,URINE YELLOW (YELLOW); GLUCOSE, URINE (UA) NEGATIVE (NEGATIVE); KETONES,URINE NEGATIVE (NEGATIVE); LEUKOCYTE ESTERASE ,URINE LARGE (NEGATIVE); NITRATE,URINE POSITIVE (NEGATIVE); OCCULT BLOOD,URINE LARGE (NEGATIVE); PROTEIN,URINE 100 mg/dL (NEGATIVE); UROBILINOGEN,URINE 0.2 mg/dL (0.2-1.0)
[2019-05-10 11:29] LABS: INR 0.95 (0.85-1.15); PARTIAL THROMBOPLASTIN TIME 27.5 SEC (26.3-35.5)
[2019-05-10 11:30] LABS: CREATININE 1.4 mg/dL (0.5-1.5); POTASSIUM 3.4 mmol/L (3.5-5.1)
[2019-05-10 11:40] LABS: BACTERIA,URINE Many /HPF (None Seen); WBC,URINE TNTC /HPF (0-1)
[2019-05-10 11:41] LABS: SQUAMOUS EPITHELIAL CELL,UR Moderate /HPF (0-2)
--- NOTE | 2019-05-10 15:13 | NUR ---
PER DR. BARROS EKG OK NO NEW ORDERS
--- NOTE | 2019-05-10 18:02 | NUR ---
LABS ABNORMAL LABS REPORTED , MESSAGE LEFT WITH DARYL, AWAITING FOR FURTHER ORDERS
[~2019-05-11] VITALS: Ht 165.1 cm; Wt 71.7 kg
[2019-05-11] VITALS (14 sets, daily range): BP systolic 112–134; BP diastolic 55–77
[~2019-05-11 11:44] MED LIST changes: -ALPR0.255 PO; +GENTAMICIN SULFATE 240 MG in SODIUM CHLORIDE 0.9% 100 ML IV SCH; +LACT1CAP78 PO; -LACTATED RINGERS 1000ML 1,000 ML IV SCH; -MEMA5TAB15 PO; +MEMA5TAB42 PO; +QUET25TA74 PO; +RIVA3CAP5 PO
[2019-05-11] MEDS: ZOSYN 3.375GM+NS 50ML 50 ML IV SCH ×2 (12:30→14:00)
[2019-05-11] MEDS ORDERED: LACTATED RINGERS 1000ML 1,000 ML IV ONE (12:31)
[2019-05-11] MEDS ORDERED: IOHEXOL-350 50ML VIAL IV ONE (13:17)
[2019-05-11] MEDS ORDERED: LIDOCAINE HCL MPF 1% 5ML VIAL ONE (13:28)
[2019-05-11] MEDS ORDERED: PROPOFOL 10 MG/ML 20ML VIAL IV ONE (13:28)
[2019-05-11] MEDS ORDERED: FENTANYL CITRATE PF 50 MCG/1 ML 2ML VIAL ONE (13:30)
[2019-05-11] MEDS ORDERED: ONDANSETRON HCL 4 MG/2 ML VIAL ONE (14:19)
== END 2019-05-11 16:15 | disposition home or self-care (01) ==
LOC: DAH 11:44
PROVIDERS: ATTEND Urology
DX: N13.30 Unspecified hydronephrosis (principal); N35.819 Other urethral stricture, male, unspecified site; K21.9 Gastro-esophageal reflux disease without esophagitis; G30.9 Alzheimer's disease, unspecified; F02.80 Dementia in other diseases classified elsewhere, unspecified severity, without behavioral disturbance, psychotic disturbance, mood disturbance, and anxiety; C61 Malignant neoplasm of prostate; F41.9 Anxiety disorder, unspecified; F32.9 Major depressive disorder, single episode, unspecified; C67.9 Malignant neoplasm of bladder, unspecified; Z79.899 Other long term (current) drug therapy; Z98.890 Other specified postprocedural states; Z88.8 Allergy status to other drugs, medicaments and biological substances; Z88.1 Allergy status to other antibiotic agents; Z87.891 Personal history of nicotine dependence; Z82.49 Family history of ischemic heart disease and other diseases of the circulatory system; Z83.3 Family history of diabetes mellitus
CPT/HCPCS: 36415; 52332; 71046; 74420; 80048; 81001; 85027; 85610; 85730; 87071 ×2; 87077 ×2; 87088; 87186 ×2; 87205 ×2; 93005; 96365; A4215; A4221; A4222; A4223 ×2; A4354; A4600; A4649; A4663; A4930; A5113; A6260; C1758 ×2; C1769 ×2; C2617; J1580; J2405; J2543; J2704; J3010; J3490; J7120 ×2; Q9967

== ENCOUNTER 2019-07-09 12:46 | Emergency (ER) | payer MEDICARE ==
[~2019-07-09 12:46] MED LIST changes: -GENTAMICIN SULFATE 240 MG in SODIUM CHLORIDE 0.9% 100 ML IV SCH
[2019-07-09 13:24] LABS: BASOPHILS % (AUTO) 0.3 % (0.0-5.0); EOSINOPHILS % (AUTO) 0.7 % (0.0-8.0); HEMATOCRIT 38.6 % (42-54); LYMPHOCYTES % (AUTO) 7.1 % (21.0-51.0); MEAN CORPUSCULAR HEMOGLOBIN 28.5 pg (27.0-33.0); MEAN CORPUSCULAR HGB CONC 31.9 g/dL (32.0-36.0); MEAN CORPUSCULAR VOLUME 89.6 fL (79-99); MONOCYTES % (AUTO) 8.3 % (3.0-13.0); NEUTROPHILS % (AUTO) 83.2 % (40.0-77.0); PLATELET COUNT (AUTO) 136 K/uL (130-400); RED BLOOD CELL COUNT(AUTO) 4.31 MIL/uL (4.50-6.20); RED CELL DISTRIBUTION WIDTH 13.3 % (11.0-15.5); WHITE BLOOD COUNT (AUTO) 9.1 K/uL (4.8-10.8)
[2019-07-09 13:39] LABS: CARBON DIOXIDE 25 mmol/L (21-32); CHLORIDE 109 mmol/L (101-111); CREATININE 1.7 mg/dL (0.5-1.5); GLOMERULAR FILTR. RATE CALC 41 mL/min (>60); GLUCOSE,RANDOM 144 mg/dL (70-105); POTASSIUM 3.6 mmol/L (3.5-5.1); SODIUM SERUM 144 mmol/L (136-145); UREA NITROGEN, BLOOD 20 mg/dL (7-18)
[2019-07-09 13:44] LABS: ALBUMIN 2.5 g/dL (3.5-5.0); ASPARTATE AMINOTRANSFERASE 14 U/L (10-37); BILIRUBIN,TOTAL 0.4 mg/dL (0.2-1.0); CREATINE KINASE, TOTAL 46 U/L (21-232); TOTAL PROTEIN, SERUM 7.1 g/dL (6.0-8.3)
[2019-07-09 14:10] LABS: ALANINE AMINOTRANSFERASE < 6 U/L (12-78)
[2019-07-09 16:09] LABS: APPEARANCE,URINE CLOUDY (CLEAR); BILIRUBIN,URINE NEGATIVE (NEGATIVE); COLOR,URINE YELLOW (YELLOW); GLUCOSE, URINE (UA) NEGATIVE (NEGATIVE); KETONES,URINE NEGATIVE (NEGATIVE); LEUKOCYTE ESTERASE ,URINE LARGE (NEGATIVE); NITRATE,URINE POSITIVE (NEGATIVE); OCCULT BLOOD,URINE LARGE (NEGATIVE); PROTEIN,URINE >=300 mg/dL (NEGATIVE); UROBILINOGEN,URINE 0.2 mg/dL (0.2-1.0)
[2019-07-09 16:31] LABS: BACTERIA,URINE Many /HPF (None Seen); MUCUS,URINE Few LPF (None Seen); SQUAMOUS EPITHELIAL CELL,UR 0-2 /HPF (0-2)
[2019-07-09] MEDS ORDERED: SODIUM CHLORIDE 0.9% 1000ML 1,000 ML IV ONE (17:14)
[2019-07-09] MEDS ORDERED: CEFTRIAXONE SODIUM 1 GM ONE (17:14)
[2019-07-09] MEDS ORDERED: NITROFURANTOIN MONOHYD/M-CRYST 100 MG CAPSULE PO ONE (18:13)
== END 2019-07-09 19:45 | disposition home or self-care (01) ==
LOC: EDH 12:46
DX: N39.0 Urinary tract infection, site not specified (principal); F03.90 Unspecified dementia, unspecified severity, without behavioral disturbance, psychotic disturbance, mood disturbance, and anxiety; I12.9 Hypertensive chronic kidney disease with stage 1 through stage 4 chronic kidney disease, or unspecified chronic kidney disease; N18.9 Chronic kidney disease, unspecified; Z88.6 Allergy status to analgesic agent; E07.9 Disorder of thyroid, unspecified; Z87.891 Personal history of nicotine dependence
CPT/HCPCS: 36415; 80053; 81001; 82550; 84484; 85025; 87040 ×2; 87077; 87088; 87186; 87804 ×2; 93005; 99285; J0696; J7030

== ENCOUNTER 2019-08-03 11:35 | Observation (INO) | payer MEDICARE ==
[2019-08-02 11:38] LABS: APPEARANCE,URINE CLOUDY (CLEAR); BILIRUBIN,URINE NEGATIVE (NEGATIVE); COLOR,URINE YELLOW (YELLOW); GLUCOSE, URINE (UA) NEGATIVE (NEGATIVE); HEMATOCRIT 43.5 % (42-54); KETONES,URINE NEGATIVE (NEGATIVE); LEUKOCYTE ESTERASE ,URINE MODERATE (NEGATIVE); MEAN CORPUSCULAR HEMOGLOBIN 28.1 pg (27.0-33.0); MEAN CORPUSCULAR HGB CONC 31.5 g/dL (32.0-36.0); MEAN CORPUSCULAR VOLUME 89.3 fL (79-99); NITRATE,URINE POSITIVE (NEGATIVE); OCCULT BLOOD,URINE LARGE (NEGATIVE); PLATELET COUNT (AUTO) 182 K/uL (130-400); PROTEIN,URINE 100 mg/dL (NEGATIVE); RED BLOOD CELL COUNT(AUTO) 4.87 MIL/uL (4.50-6.20); RED CELL DISTRIBUTION WIDTH 14.3 % (11.0-15.5); UROBILINOGEN,URINE 0.2 mg/dL (0.2-1.0)
[2019-08-02 11:44] LABS: CREATININE 1.6 mg/dL (0.5-1.5); POTASSIUM 3.5 mmol/L (3.5-5.1)
[2019-08-02 11:52] LABS: BACTERIA,URINE Many /HPF (None Seen); RBC,URINE 51-100 /HPF (0-1); WBC,URINE TNTC /HPF (0-1)
[2019-08-02 11:53] LABS: INR 0.98 (0.85-1.15); PARTIAL THROMBOPLASTIN TIME 28.7 SEC (26.3-35.5); PROTHROMBIN TIME 10.3 SEC (9.6-11.6)
[2019-08-02 11:57] VITALS: BP 127/75
--- NOTE | 2019-08-02 15:03 | NUR ---
EKG OK PER DR WATTERS,
--- NOTE | 2019-08-02 15:39 | NUR ---
UA FAXED AND REPORTED ABNORMAL UA TO DRAYL. SHE WILL INFORM DR. MOISE.
[2019-08-03] VITALS (28 sets, daily range): BP systolic 108–162; BP diastolic 39–86
[~2019-08-03] VITALS: Ht 165.1 cm; Wt 70.7 kg
[~2019-08-03 11:35] MED LIST changes: +CYAN100022 SL; +GENTAMICIN SULFATE 240 MG in SODIUM CHLORIDE 0.9% 100 ML IV SCH; -LACT1CAP78 PO
[2019-08-03] MEDS: ZOSYN 3.375GM+NS 50ML 50 ML IV SCH ×3 (12:30→22:11)
[2019-08-03] MEDS ORDERED: IOHEXOL-350 50ML VIAL IV ONE (12:33)
[2019-08-03] MEDS: LACTATED RINGERS 1000ML 1,000 ML IV SCH ×3 (12:44→21:50)
[2019-08-03] MEDS ORDERED: LIDOCAINE PF 2% 5ML ABBOJECT ONE (14:37)
[2019-08-03] MEDS ORDERED: ROCURONIUM 10MG/1ML SYR 10 MG/ML ML ONE (14:38)
[2019-08-03] MEDS ORDERED: PROPOFOL 10 MG/ML 20ML VIAL IV ONE (14:38)
[2019-08-03] MEDS ORDERED: ONDANSETRON HCL 4 MG/2 ML VIAL ONE (14:38)
[2019-08-03] MEDS ORDERED: EPHEDRINE SULFATE 50 MG/ML AMPULE ONE (14:40)
[2019-08-03] MEDS ORDERED: FENTANYL CITRATE PF 50 MCG/1 ML 2ML VIAL ONE (15:26)
--- NOTE | 2019-08-03 19:27 | NUR ---
TRANSFER FROM PACU RECEIVED PT FROM PACU, CBI RUNNING, URINE LIGHT PINK IN COLOR. PT AWAKE, ALERT AND VERBALLY RESPONSIVE. NO C/O PAIN OR DISCOMFORT AT THIS TIME. FAMILY MEMBERS AT BEDSIDE, ORIENTED TO ROOM, CALL ACEVEDO WITHIN REACH, BED IN LOWEST POSITION. Addendum: 08/04/19 at 0006 by SAIGE QURESHI RN Amended: Links added.
[2019-08-03] MEDS ORDERED: ACETAMINOPHEN-CODEINE 300/30MG TAB PO PRN (20:15)
[2019-08-03] MEDS ORDERED: MIDODRINE HCL 5 MG TABLET PO PRN (20:15)
[2019-08-03] MEDS: RIVASTIGMINE TARTRATE 3 MG PO SCH (21:00)
[2019-08-03] MEDS ORDERED: CITALOPRAM 20 MG TABLET PO SCH (21:00)
[2019-08-03] MEDS ORDERED: MELATONIN 10 MG PO SCH (21:00)
[2019-08-03] MEDS: MEMANTINE HCL 5 MG TABLET PO SCH (21:57)
[2019-08-03] MEDS: QUETIAPINE FUMARATE 25 MG TAB PO SCH (21:57)
[2019-08-04] VITALS: BP 107/71
[2019-08-04 04:00] VITALS: BP 115/74
[2019-08-04] MEDS ORDERED: SODIUM CHLORIDE 0.9% 1000ML 1,000 ML IV SCH (06:00)
[2019-08-04] MEDS ORDERED: LEVOTHYROXINE 88 MCG TABLET PO SCH (06:30)
[2019-08-04] MEDS: QUETIAPINE FUMARATE 25 MG TAB PO SCH (08:07)
[2019-08-04] MEDS: ZOSYN 3.375GM+NS 50ML 50 ML IV SCH (08:07)
[2019-08-04] MEDS: MEMANTINE HCL 5 MG TABLET PO SCH (08:07)
[2019-08-04] MEDS: RIVASTIGMINE TARTRATE 3 MG PO SCH (08:11)
[2019-08-04 08:15] VITALS: BP 127/68
[2019-08-04] MEDS ORDERED: CYANOCOBALAMIN (VITAMIN B-12) 1,000 MCG TABLET PO SCH (09:00)
--- NOTE | 2019-08-04 11:00 | NUR ---
CM NOTE CHART REIVWED, SCHEDULED OPP, FOR DC TODAY, NO CONCERNS VOICED, NO TRIGGERS TO CM; DETAILED ASSESSMENT DEFERRED Addendum: 08/04/19 at 1244 by HODA DALEY RN CM Amended: Links added.
--- NOTE | 2019-08-04 11:30 | NUR ---
DISCHARGE INSTRUCTIONS GIVEN TO PATIENT AND PATIENTS DAUGHTER AT BEDSIDE. MADE AWARE OF FOLLOW UP APPOINTMENT WITH DR. MOISE TOMORROW AT 9AM. MADE AWARE OF NEW RX FOR MACROBID AND TYLENOL. AT THIS TIME PATIENTS URINE IS CLEAR LIGHT YELLOW. CHANGED TO LEG BAG AND PROVIDED WITH DRAINAGE BAG FOR HS. DENIES ANY PAIN. IV REMOVED. PATIENT WILL BE TRANSPORTED HOME BY FAMILY
== END 2019-08-04 12:11 | disposition home or self-care (01) ==
LOC: DAH 11:35 → 4DH 17:45
PROVIDERS: ADMIT Urology; ATTEND Urology
DX: C67.9 Malignant neoplasm of bladder, unspecified (principal); C61 Malignant neoplasm of prostate; N35.912 Unspecified bulbous urethral stricture, male; N13.30 Unspecified hydronephrosis; G30.9 Alzheimer's disease, unspecified; I10 Essential (primary) hypertension; F02.80 Dementia in other diseases classified elsewhere, unspecified severity, without behavioral disturbance, psychotic disturbance, mood disturbance, and anxiety; Z85.51 Personal history of malignant neoplasm of bladder; Z92.3 Personal history of irradiation; Z85.46 Personal history of malignant neoplasm of prostate
CPT/HCPCS: 36415; 52332; 71046; 74420; 80048; 81001; 85027; 85610; 85730; 87071 ×2; 87077 ×2; 87088; 87186 ×2; 87205 ×2; 93005; 96365; 96366 ×2; 96367; A4213; A4215; A4221; A4222; A4223; A4354; A4600; A4663; A4930; A6260; C1758; C1769; C2617; G0378 ×8; J1580; J2001; J2405; J2543 ×4; J2704; J3010; J3490; J7120 ×2; Q9967

== ENCOUNTER 2019-10-19 05:12 | Day surgery (SDC) | payer MEDICARE ==
[2019-10-18 13:00] VITALS: BP 125/72
--- NOTE | 2019-10-18 13:05 | NUR ---
REPORT REPORTED TO FRANCES MAZARIEGOS CRNA THAT PT WAS SEEN ABOUT A WEEK AGO BY DR HILL BLOW TORCH BURNER FOR C/O PALPITATIONS. EKG WAS ALSO SHOWN TO AERIAL LINEMAN. PER ROHIT FAMILY PATIENT WAS CLEARED. NO NEW ORDERS AT THIS TIME.
[2019-10-18 13:13] LABS: HEMATOCRIT 41.4 % (42-54); MEAN CORPUSCULAR HEMOGLOBIN 28.3 pg (27.0-33.0); MEAN CORPUSCULAR HGB CONC 31.6 g/dL (32.0-36.0); MEAN CORPUSCULAR VOLUME 89.4 fL (79-99); RED BLOOD CELL COUNT(AUTO) 4.63 MIL/uL (4.50-6.20)
[2019-10-18 13:16] LABS: APPEARANCE,URINE TURBID (CLEAR); BILIRUBIN,URINE NEGATIVE (NEGATIVE); COLOR,URINE YELLOW (YELLOW); GLUCOSE, URINE (UA) NEGATIVE (NEGATIVE); KETONES,URINE NEGATIVE (NEGATIVE); LEUKOCYTE ESTERASE ,URINE LARGE (NEGATIVE); NITRATE,URINE NEGATIVE (NEGATIVE); OCCULT BLOOD,URINE LARGE (NEGATIVE); PROTEIN,URINE 100 mg/dL (NEGATIVE)
[2019-10-18 13:23] LABS: WBC,URINE TNTC /HPF (0-1)
[2019-10-18 13:24] LABS: BACTERIA,URINE Many /HPF (None Seen); SQUAMOUS EPITHELIAL CELL,UR Few /HPF (0-2)
[2019-10-18 13:25] LABS: TRIPLE PHOSPHATE CRYSTAL,UR Few /LPF (None Seen)
[2019-10-18 13:31] LABS: CREATININE 1.5 mg/dL (0.5-1.5); POTASSIUM 3.8 mmol/L (3.5-5.1)
[2019-10-18 13:36] LABS: INR 0.99 (0.85-1.15); PARTIAL THROMBOPLASTIN TIME 30.8 SEC (26.3-35.5); PROTHROMBIN TIME 10.7 SEC (9.6-11.6)
--- NOTE | 2019-10-18 14:00 | NUR ---
REPORT CALLED DR MOISE AND SPOKE TO DARYL JAMISON. INFORMED HER OF UA, CBC, LABS AND FAXED THEM. SHE WILL SHOW TO MD AND CALL IF ANY NEW ORDERS.
[2019-10-19] VITALS (20 sets, daily range): BP systolic 102–200; BP diastolic 56–100
[~2019-10-19] VITALS: Ht 165.1 cm; Wt 69.8 kg
[~2019-10-19 05:12] MED LIST changes: +CETI10TA57 PO; -CYAN100022 SL; +ERGOCALCIFEROL PO; -GENTAMICIN SULFATE 240 MG in SODIUM CHLORIDE 0.9% 100 ML IV SCH; +LEVO75TA10 PO; -LEVO88TA7 PO; +MEMA10TA55 PO; -MEMA5TAB42 PO; -QUET25TA74 PO; +RIVA3CAP17 PO; -RIVA3CAP5 PO; +citrucel PO
[2019-10-19] MEDS ORDERED: LACTATED RINGERS 1000ML 1,000 ML IV ONE (05:44)
[2019-10-19] MEDS ORDERED: LIDOCAINE PF 2% 5ML ABBOJECT ONE ×2 (06:22→06:24)
[2019-10-19] MEDS ORDERED: DEXAMETHASONE SOD PHOSPHATE 10MG/ML 1ML VIAL ONE (06:22)
[2019-10-19] MEDS ORDERED: PROPOFOL 10 MG/ML 20ML VIAL IV ONE (06:23)
[2019-10-19] MEDS ORDERED: FENTANYL CITRATE PF 50 MCG/1 ML 2ML VIAL ONE (06:23)
[2019-10-19] MEDS ORDERED: ROCURONIUM 10MG/1ML SYR 10 MG/ML ML ONE (06:23)
[2019-10-19] MEDS ORDERED: GLYCOPYRROLATE 1 MG/5 ML SYRINGE ONE ×2 (06:23→07:52)
[2019-10-19] MEDS ORDERED: ONDANSETRON HCL 4 MG/2 ML VIAL ONE (06:23)
[2019-10-19] MEDS ORDERED: NEOSTIGMINE 5MG/5ML SYR IV ONE ×2 (06:23→07:52)
[2019-10-19] MEDS ORDERED: SUCCINYLCHOLINE CHLORIDE 20 MG/ML 10 ML VIAL ONE (06:24)
[2019-10-19] MEDS ORDERED: IOHEXOL-350 50ML VIAL IV ONE (06:32)
[2019-10-19] MEDS ORDERED: PHENYLEPHRINE HCL 10 MG/ML 1ML VIAL IV ONE (06:53)
[2019-10-19] MEDS: ZOSYN 3.375GM+NS 50ML 50 ML IV ONE (07:14)
[2019-10-19] MEDS ORDERED: LACTATED RINGERS 1000ML 1,000 ML IV SCH (08:00)
[2019-10-19] MEDS ORDERED: GENTAMICIN SULFATE 240 MG in SODIUM CHLORIDE 0.9% 100 ML IV PRN (08:00)
[2019-10-19] MEDS ORDERED: ZOSYN 3.375GM+NS 50ML 50 ML IV PRN (08:00)
[2019-10-19] MEDS ORDERED: SUGAMMADEX SODIUM 200 MG/2 ML VIAL IV ONE (08:30)
--- NOTE | 2019-10-19 09:10 | NUR ---
PATIENT BROUGHT TO DAY PATIENT VIA STRETCHER BY KENNETH RANGEL. PATIENT AWAKE, ALERT, CONFUSED AT TIMES. DARLING CATHETER IN PLACE, DRAINING PINK TINGED URINE
--- NOTE | 2019-10-19 09:30 | NUR ---
DARLING CATHETER BAG CHANGED OUT TO LEG BAG. INSTRUCTED PATIENT'S DAUGHTER ON DARLING CARE.DISCHARGE INSTRUCTIONS PROVIDED TO PATIENT'S DAUGHTER (ROHIT) AND INSTRUCTED HER THAT DR MOISE'S OFFICE WILL BE CALLING HER FOR APPOINTMENT. PRESCRIPTIONS PROVIDED TO PATIENT'S DAUGHTER. AL QUESTIONS/CONCERNS ADDRESSED.
--- NOTE | 2019-10-19 10:05 | NUR ---
PATIENT DISCHARGED FROM HOSPITAL VIA WHEELCHAIR AND ASSISTED INTO PRIVATE VEHICLE DRIVEN BY FAMILY MEMBER
== END 2019-10-19 10:05 | disposition home or self-care (01) ==
LOC: DAH 05:12
PROVIDERS: ATTEND Urology
DX: T83.192A Other mechanical complication of indwelling ureteral stent, initial encounter (principal); N13.30 Unspecified hydronephrosis; N32.89 Other specified disorders of bladder; C61 Malignant neoplasm of prostate; C67.9 Malignant neoplasm of bladder, unspecified; G30.9 Alzheimer's disease, unspecified; I10 Essential (primary) hypertension; I49.1 Atrial premature depolarization; Z79.899 Other long term (current) drug therapy; Y83.8 Other surgical procedures as the cause of abnormal reaction of the patient, or of later complication, without mention of misadventure at the time of the procedure
CPT/HCPCS: 36415; 52332; 74420; 80048; 81001; 85027; 85610; 85730; 87071 ×2; 87077 ×5; 87088; 87186 ×5; 87205 ×2; 93005; A4213; A4215; A4221; A4222; A4223; A4354; A4600; A4606; A4663; A5113; A5120; A6260; C1758 ×3; C2617; J0330; J1100; J2001 ×2; J2370; J2405; J2543; J2704; J2710 ×2; J3010; J3490 ×2; J7030; J7120 ×2; Q9967

== ENCOUNTER 2019-11-01 12:00 | Inpatient (IN) | payer MEDICARE ==
[~2019-11-01] VITALS: Ht 160 cm; Wt 69.1 kg
[2019-11-01 13:04] LABS: APPEARANCE,URINE TURBID (CLEAR); BILIRUBIN,URINE NEGATIVE (NEGATIVE); COLOR,URINE YELLOW (YELLOW); GLUCOSE, URINE (UA) NEGATIVE (NEGATIVE); KETONES,URINE NEGATIVE (NEGATIVE); LEUKOCYTE ESTERASE ,URINE LARGE (NEGATIVE); NITRATE,URINE NEGATIVE (NEGATIVE); OCCULT BLOOD,URINE LARGE (NEGATIVE); PH,URINE 6.5 (5.0-8.0); PROTEIN,URINE >=300 mg/dL (NEGATIVE)
[2019-11-01 13:07] LABS: BASOPHILS % (AUTO) 0.4 % (0.0-5.0); HEMATOCRIT 35.5 % (42-54); LYMPHOCYTES % (AUTO) 6.5 % (21.0-51.0); MEAN CORPUSCULAR HEMOGLOBIN 28.2 pg (27.0-33.0); MEAN CORPUSCULAR HGB CONC 31.8 g/dL (32.0-36.0); MEAN CORPUSCULAR VOLUME 88.5 fL (79-99); MONOCYTES % (AUTO) 8.4 % (3.0-13.0); NEUTROPHILS % (AUTO) 83.1 % (40.0-77.0); PLATELET COUNT (AUTO) 187 K/uL (130-400); RED BLOOD CELL COUNT(AUTO) 4.01 MIL/uL (4.50-6.20); RED CELL DISTRIBUTION WIDTH 14.8 % (11.0-15.5); WHITE BLOOD COUNT (AUTO) 16.7 K/uL (4.8-10.8)
[2019-11-01 13:12] LABS: AMPHET/METH SCREEN,URINE NEGATIVE (NEGATIVE); BARBITURATE SCREEN, URINE NEGATIVE (NEGATIVE); BENZODIAZEPINES SCREEN,URINE NEGATIVE (NEGATIVE); CANNABINOID SCREEN,URINE NEGATIVE (NEGATIVE); COCAINE SCREEN,URINE NEGATIVE (NEGATIVE); OPIATE SCREEN,URINE POSITIVE (NEGATIVE); PHENCYCLIDINE SCREEN,URINE NEGATIVE (NEGATIVE)
[2019-11-01 13:17] LABS: BACTERIA,URINE Moderate /HPF (None Seen); RBC,URINE 51-100 /HPF (0-1); SQUAMOUS EPITHELIAL CELL,UR Few /HPF (0-2); WBC,URINE TNTC /HPF (0-1)
[2019-11-01 13:22] LABS: CREATININE 2.1 mg/dL (0.5-1.5); POTASSIUM 3.6 mmol/L (3.5-5.1)
[2019-11-01 13:27] LABS: ALBUMIN 2.1 g/dL (3.5-5.0); BILIRUBIN,TOTAL 0.4 mg/dL (0.2-1.0); TOTAL PROTEIN, SERUM 6.9 g/dL (6.0-8.3)
[2019-11-01] MEDS ORDERED: LEVOFLOXACIN 500 MG/D5W 100 ML 100 ML ONE (16:06)
[2019-11-01] MEDS ORDERED: VANCOMYCIN 1GM+NS 250ML 250 ML IV ONE (18:04)
[2019-11-01] MEDS ORDERED: FAMOTIDINE/PF 20 MG/2 ML VIAL IV ONE (20:55)
[2019-11-01 22:30] VITALS: BP 93/59
--- NOTE | 2019-11-01 22:30 | NUR ---
ADMIT PT ADMITTED TO ROOM 321, AA BUT IS CONFUSED. ADMISSION ASSESSMENT DONE, PLEASE REFER TO CHART. PLACED COMFORTABLY IN BED. CHANGED PT'S DIAPER AND NOTED TO HAVE AN ABSCESS LIKE WOUND ON HIS RIGHT GROIN AREA DRAINING PUS LIKE FLUID WITH BLOOD. NOTED TO HAVE THE SAME DRAINING FROM HIS PENIS. COVERED RT GROIN WITH ABD PAD AND CHANGED PT'S DIAPER. ADMISSION DATA BASE COMPLETED. CONTINUED IVF OF NS FROM ER AT 100CC/HR. IN FOR MORE CARE AND MANAGEMENT. PT'S DAUGHTER IS ALLOWED TO STAY WITH PT PERSONAL SITTER. RESOURCE NURSE ALLOWING FAMILY TO STAY. Addendum: 11/02/19 at 0044 by OLENA SOTO RN RN Amended: Links added.
[2019-11-01] MEDS ORDERED: APAP/CODEINE PO (22:40)
[2019-11-01] MEDS ORDERED: HYOS-28 PO (22:40)
[2019-11-01] MEDS ORDERED: DOCU-272 PO (22:40)
[2019-11-01] MEDS ORDERED: ONDANSETRON HCL 4 MG/2 ML VIAL IVP PRN (23:15)
[2019-11-01] MEDS: SODIUM CHLORIDE 0.9% 1000ML 1,000 ML IV SCH (23:15)
[2019-11-01] MEDS ORDERED: ACETAMINOPHEN 325 MG TAB PO PRN (23:15)
[2019-11-02] MEDS ORDERED: MIDODRINE HCL 5 MG TABLET PO PRN (00:15)
[2019-11-02] MEDS ORDERED: HYOSCYAMINE SULFATE 0.125 MG TAB.SUBL SL PRN (00:15)
[2019-11-02] MEDS ORDERED: ACETAMINOPHEN-CODEINE 300/30MG TAB PO PRN (01:45)
--- NOTE | 2019-11-02 01:50 | NUR ---
ROUNDS PT RESTING IN BED BUT NOT ASLEEP. PT'S DAUGHTER CLAIMS HE HAS NOT SLEPT ALL NIGHT. NO DISTRESS NOTED. KEPT COMFORTABLE. DAUGHTER IN ROOM PRIVATE SITTER. WILL MONITOR PT.
[2019-11-02 03:03] VITALS: BP 111/51
[2019-11-02] MEDS: SODIUM CHLORIDE 0.9% 1000ML 1,000 ML IV SCH ×3 (03:06→19:15)
[2019-11-02 05:09] LABS: MEAN CORPUSCULAR HEMOGLOBIN 27.9 pg (27.0-33.0); MEAN CORPUSCULAR HGB CONC 30.9 g/dL (32.0-36.0); MEAN CORPUSCULAR VOLUME 90.4 fL (79-99); PLATELET COUNT (AUTO) 160 K/uL (130-400); RED BLOOD CELL COUNT(AUTO) 3.87 MIL/uL (4.50-6.20); RED CELL DISTRIBUTION WIDTH 14.8 % (11.0-15.5); WHITE BLOOD COUNT (AUTO) 13.5 K/uL (4.8-10.8)
[2019-11-02 05:34] LABS: B-TYPE NATRIURETIC PEPTIDE 199 pg/mL (0-100)
[2019-11-02] MEDS: LEVOTHYROXINE 75 MCG TABLET PO SCH (05:46)
--- NOTE | 2019-11-02 06:30 | NUR ---
[facility] PCP IN AND GAVE PT A BED BATH, TOLERATED ACTIVITY WELL. WAFFLE MATTRESS PLACED BY PCP IN BED. KEPT COMFORTABLE IN BED. FOR MORE CARE AND MANAGEMENT.
[2019-11-02 07:46] VITALS: BP 117/57
[2019-11-02] MEDS: CETIRIZINE HCL 5 MG TABLET PO SCH (08:18)
[2019-11-02] MEDS: DOCUSATE SODIUM 100 MG CAP PO SCH (08:18)
[2019-11-02] MEDS: RIVASTIGMINE TARTRATE 3 MG PO SCH ×3 (08:18→20:02)
[2019-11-02] MEDS: CITALOPRAM 20 MG TABLET PO SCH (08:18)
[2019-11-02] MEDS: MEMANTINE HCL 5 MG TABLET PO SCH ×2 (08:18→19:54)
[2019-11-02] MEDS: FAMOTIDINE/PF 20 MG/2 ML VIAL IV SCH (08:19)
--- NOTE | 2019-11-02 11:05 | NUR ---
INFECTIOUS DISEASE DR. PEREZ IN TO SEE PATIENT. NEW ORDERS RECEIVED AND CARRIED OUT.
[2019-11-02 11:35] VITALS: BP 95/49
--- NOTE | 2019-11-02 11:49 | NUR ---
[facility] CONSULT PATIENT ASSESSED REQUESTED: [facility] RECOMMENDATIONS SUBMITTED AND REPORT GIVEN TO PATIENT'S NURSE IMELDA. Addendum: 11/02/19 at 1151 by LUCIEN WILLIAM LVN LVN W Amended: Links added.
--- NOTE | 2019-11-02 12:38 | NUR ---
MAHOGANY PLAN VISITED WITH PATIENT. DAUGHTER IN ROOM. PATIENT LIVES WITH SPOUSE. SEMI INDEPENDENT ABLE TO PERFORM ADL'S. PATIENT HAS WALKER, WHEEL CHAIR. HOME HEALTH [facility] FROM [facility]. PROVIDER 20 HRS DONE BY SISTER. PLAN IS TO RETURN HOME. Addendum: 11/02/19 at 1240 by STEPHON SEAMAN RN CM Amended: Links added.
[2019-11-02] MEDS: MEROPENEM 1 GM VIAL IVP SCH (12:41)
[2019-11-02 17:32] VITALS: BP 123/64
[2019-11-02] MEDS: ***HM***Melatonin 10 MG PO SCH (19:54)
--- NOTE | 2019-11-02 19:55 | NUR ---
MEDS SHIFT ASSESSMENT DONE, PLEASE REFER TO CHART. DUE MEDS ADMINISTERED, TOLERATED WELL.KEPT RESTED AND COMFORTABLE IN BED WITH HOB ELEVATED. PT'S DAUGHTER STAYING THE NIGHT TO SIT WITH PT. WILL MONITOR PT. Addendum: 11/02/19 at 2224 by OLENA SOTO RN RN Amended: Links added.
[2019-11-02 20:00] VITALS: BP 115/59
--- NOTE | 2019-11-02 22:00 | NUR ---
ROUNDS PT IS STILL AWAKE BUT IS CALM AND QUITE IN BED. KEPT COMFORTABLE. WILL CONTINUE TO MONITOR.
[2019-11-03] VITALS (8 sets, daily range): BP systolic 100–149; BP diastolic 58–90
[2019-11-03] MEDS: SODIUM CHLORIDE 0.9% 1000ML 1,000 ML IV SCH ×3 (02:10→16:57)
--- NOTE | 2019-11-03 02:10 | NUR ---
IVF PT ASLEEP BUT IS MOVING IN HIS SLEEP. KEPT COMFORTABLE IN BED. NEW IVF BAG HUNG. WILL MONITOR PT. FAMILY ASLEEP AT BEDSIDE.
[2019-11-03 05:06] LABS: HEMATOCRIT 34.9 % (42-54); MEAN CORPUSCULAR HEMOGLOBIN 27.9 pg (27.0-33.0); MEAN CORPUSCULAR HGB CONC 31.5 g/dL (32.0-36.0); MEAN CORPUSCULAR VOLUME 88.6 fL (79-99); RED BLOOD CELL COUNT(AUTO) 3.94 MIL/uL (4.50-6.20); RED CELL DISTRIBUTION WIDTH 14.5 % (11.0-15.5); WHITE BLOOD COUNT (AUTO) 8.9 K/uL (4.8-10.8)
[2019-11-03 05:19] LABS: CREATININE 1.5 mg/dL (0.5-1.5); POTASSIUM 3.2 mmol/L (3.5-5.1)
[2019-11-03] MEDS: LEVOTHYROXINE 75 MCG TABLET PO SCH (06:07)
--- NOTE | 2019-11-03 06:07 | NUR ---
MEDS AWAKENED PT FOR DUE MEDS, TOLERATED WELL. PT'S PIV KEEPS BEEPING IT GETS OCCLUSION ON PUMP WITH POSITION. INSERTED SECOND PIV G20 TO LFA. PT TOLERATED INSERTION WELL. KEPT COMFORTABLE IN BED. PT'S FAMILY ASKED TO BRING RIVASTIGMINE, HOME MED, FROM HOME. FOR MORE CARE.
[2019-11-03] MEDS: FAMOTIDINE/PF 20 MG/2 ML VIAL IV SCH (08:50)
[2019-11-03] MEDS: DOCUSATE SODIUM 100 MG CAP PO SCH (08:51)
[2019-11-03] MEDS: MEMANTINE HCL 5 MG TABLET PO SCH ×2 (08:51→21:00)
[2019-11-03] MEDS: CITALOPRAM 20 MG TABLET PO SCH (08:51)
[2019-11-03] MEDS: CETIRIZINE HCL 5 MG TABLET PO SCH (08:51)
[2019-11-03] MEDS: RIVASTIGMINE TARTRATE 3 MG PO SCH ×2 (09:00→21:00)
[2019-11-03] MEDS ORDERED: LEVOFLOXACIN 500 MG/D5W 100 ML 100 ML IV SCH (09:00)
[2019-11-03] MEDS: MEROPENEM 1 GM VIAL IVP SCH (11:23)
[2019-11-03] MEDS ORDERED: POTASSIUM CHLORIDE 10MEQ/100ML 100 ML IV PRN (20:45)
[2019-11-03] MEDS ORDERED: LIDOCAINE HCL-MPF 1% 2ML VIAL IV PRN (20:45)
[2019-11-03] MEDS ORDERED: POTASSIUM CHLORIDE 10% ELIXIR 20 MEQ/15 ML UDCUP PO PRN (20:45)
[2019-11-03] MEDS: POTASSIUM CHLORIDE 20 MEQ ERTAB PO PRN ×2 (21:00→23:05)
[2019-11-03] MEDS: ***HM***Melatonin 10 MG PO SCH (21:00)
[2019-11-04 00:12] VITALS: BP_SYST 119; BP_SYST 130; BP_DIAS 67; BP_DIAS 69
[2019-11-04] MEDS: POTASSIUM CHLORIDE 20 MEQ ERTAB PO PRN (01:48)
[2019-11-04 04:12] LABS: BASOPHILS % (AUTO) 1.1 % (0.0-5.0); EOSINOPHILS % (AUTO) 7.1 % (0.0-8.0); HEMATOCRIT 34.1 % (42-54); LYMPHOCYTES % (AUTO) 12.2 % (21.0-51.0); MEAN CORPUSCULAR HEMOGLOBIN 27.6 pg (27.0-33.0); MEAN CORPUSCULAR HGB CONC 31.4 g/dL (32.0-36.0); MEAN CORPUSCULAR VOLUME 87.9 fL (79-99); MONOCYTES % (AUTO) 9.9 % (3.0-13.0); NEUTROPHILS % (AUTO) 69.1 % (40.0-77.0); PLATELET COUNT (AUTO) 172 K/uL (130-400); RED BLOOD CELL COUNT(AUTO) 3.88 MIL/uL (4.50-6.20); RED CELL DISTRIBUTION WIDTH 14.6 % (11.0-15.5); WHITE BLOOD COUNT (AUTO) 6.5 K/uL (4.8-10.8)
[2019-11-04 04:30] LABS: CREATININE 1.3 mg/dL (0.5-1.5); POTASSIUM 3.8 mmol/L (3.5-5.1)
[2019-11-04 05:15] VITALS: BP 147/63
[2019-11-04] MEDS: LEVOTHYROXINE 75 MCG TABLET PO SCH (06:49)
[2019-11-04] MEDS: SODIUM CHLORIDE 0.9% 1000ML 1,000 ML IV SCH ×2 (06:50→21:22)
[2019-11-04 08:00] VITALS: BP 137/80
[2019-11-04] MEDS: RIVASTIGMINE TARTRATE 3 MG PO SCH ×2 (09:00→21:00)
[2019-11-04] MEDS: MEMANTINE HCL 5 MG TABLET PO SCH ×2 (10:14→21:22)
[2019-11-04] MEDS: CETIRIZINE HCL 5 MG TABLET PO SCH (10:14)
[2019-11-04] MEDS: DOCUSATE SODIUM 100 MG CAP PO SCH (10:14)
[2019-11-04] MEDS: FAMOTIDINE/PF 20 MG/2 ML VIAL IV SCH (10:17)
[2019-11-04] MEDS: MEROPENEM 1 GM VIAL IVP SCH (11:34)
[2019-11-04 12:00] VITALS: BP 100/66
--- NOTE | 2019-11-04 15:02 | NUR ---
DC PLAN SPOKE TO RHONDA MCGRATH. SAID WILL DC PATIENT ON PO ABX IF ABLE TO. SHE SPOKE TO DAUGHTER SAID NO TO [facility] OR DR. POTTER. SAID SHE WILL SET UP HOME HEALTH WITH PRIMARY. Addendum: 11/04/19 at 1504 by STEPHON SEAMAN RN CM Amended: Links added.
--- NOTE | 2019-11-04 15:48 | NUR ---
Eve Bazan, RATTAN WORKER entered discharge orders, requested charge nurse contact Dr. Richardson for abx recommendations. Dr. Richardson stated no oral abx, pt must stay for iv abx. Relayed info to Eve, she will cancel d/c orders. Endorsed to primary nurse.
[2019-11-04 16:00] VITALS: BP 127/76
[2019-11-04 20:04] VITALS: BP 138/73
[2019-11-04] MEDS: ***HM***Melatonin 10 MG PO SCH (21:00)
[2019-11-04] MEDS ORDERED: CITALOPRAM 20 MG TABLET PO SCH (21:00)
[2019-11-05 00:04] VITALS: BP 111/61
[2019-11-05 04:08] VITALS: BP 125/72
[2019-11-05 05:21] LABS: HEMATOCRIT 33.3 % (42-54); MEAN CORPUSCULAR HEMOGLOBIN 27.4 pg (27.0-33.0); MEAN CORPUSCULAR HGB CONC 32.1 g/dL (32.0-36.0); MEAN CORPUSCULAR VOLUME 85.4 fL (79-99); RED BLOOD CELL COUNT(AUTO) 3.9 MIL/uL (4.50-6.20); RED CELL DISTRIBUTION WIDTH 14.6 % (11.0-15.5); WHITE BLOOD COUNT (AUTO) 6.5 K/uL (4.8-10.8)
[2019-11-05 05:39] LABS: CREATININE 1.4 mg/dL (0.5-1.5); POTASSIUM 3.5 mmol/L (3.5-5.1)
[2019-11-05] MEDS: SODIUM CHLORIDE 0.9% 1000ML 1,000 ML IV SCH (06:17)
[2019-11-05] MEDS: LEVOTHYROXINE 75 MCG TABLET PO SCH (06:17)
[2019-11-05] MEDS ORDERED: LIDOCAINE HCL 1% 20 ML VIAL INJ SCH (08:00)
[2019-11-05 08:14] VITALS: BP 127/82
[2019-11-05] MEDS: MEMANTINE HCL 5 MG TABLET PO SCH (08:16)
[2019-11-05] MEDS: FAMOTIDINE/PF 20 MG/2 ML VIAL IV SCH (08:16)
[2019-11-05] MEDS: RIVASTIGMINE TARTRATE 3 MG PO SCH (08:16)
[2019-11-05] MEDS: CETIRIZINE HCL 5 MG TABLET PO SCH (08:16)
[2019-11-05] MEDS: DOCUSATE SODIUM 100 MG CAP PO SCH (08:16)
[2019-11-05] MEDS: MEROPENEM 1 GM VIAL IVP SCH (10:07)
[2019-11-05 11:49] VITALS: BP 118/66
--- NOTE | 2019-11-05 13:48 | NUR ---
DR PEREZ/DISCHARGE ABX PRESCRIBED CEFTIN 500MG PO Q12HR AND LEVAQUIN 500MG PO Q 24 HR FOR DISCHARGE HOWEVER, CHART INDICATES ALLERGY TO ROCEPHIN. PER DAUGHTER PRESENT AT BEDSIDE- PT DOES NOT HAVE ANY ALLERGIES. THIS NURSE AND ROCAEL PRINCIPAL PROGRAMMER ASKED SEVERAL TIMES AND DAUGHTER DENIES ALLERGIES.
--- NOTE | 2019-11-05 13:52 | NUR ---
1349 BPCI Letter given to patient.
== END 2019-11-05 16:00 | disposition home or self-care (01) | DRG 673 ==
LOC: EDH 12:00 → EDHIP 20:35 → 3DH 21:27
PROVIDERS: ADMIT Internal Medicine Pulmonary Disease; ATTEND Internal Medicine Pulmonary Disease
PROC: 0Y950ZZ Drainage of Right Inguinal Region, Open Approach (ICD-10-PCS; principal; 2019-11-05)
DX: T83.512A Infection and inflammatory reaction due to nephrostomy catheter, initial encounter (principal); A41.50 Gram-negative sepsis, unspecified; R65.21 Severe sepsis with septic shock; N13.6 Pyonephrosis; N17.9 Acute kidney failure, unspecified; R64 Cachexia; E46 Unspecified protein-calorie malnutrition; G93.49 Other encephalopathy; L02.214 Cutaneous abscess of groin; N18.9 Chronic kidney disease, unspecified; I12.9 Hypertensive chronic kidney disease with stage 1 through stage 4 chronic kidney disease, or unspecified chronic kidney disease; C67.9 Malignant neoplasm of bladder, unspecified; E03.9 Hypothyroidism, unspecified; F03.90 Unspecified dementia, unspecified severity, without behavioral disturbance, psychotic disturbance, mood disturbance, and anxiety; F32.9 Major depressive disorder, single episode, unspecified; R53.81 Other malaise; B95.2 Enterococcus as the cause of diseases classified elsewhere; B96.20 Unspecified Escherichia coli [E. coli] as the cause of diseases classified elsewhere; B96.4 Proteus (mirabilis) (morganii) as the cause of diseases classified elsewhere; Z74.01 Bed confinement status; Z85.46 Personal history of malignant neoplasm of prostate; Z85.51 Personal history of malignant neoplasm of bladder; Z87.440 Personal history of urinary (tract) infections; Z79.899 Other long term (current) drug therapy; Z88.8 Allergy status to other drugs, medicaments and biological substances; Z88.1 Allergy status to other antibiotic agents; Y83.8 Other surgical procedures as the cause of abnormal reaction of the patient, or of later complication, without mention of misadventure at the time of the procedure; Y92.89 Other specified places as the place of occurrence of the external cause; Y73.8 Miscellaneous gastroenterology and urology devices associated with adverse incidents, not elsewhere classified
CPT/HCPCS: 36415; 74176; 80048; 80053; 80305; 81001; 83605; 83880; 85025; 85027; 86140; 87040; 87070; 87076; 87077; 87088; 87186; 99291; G0378; J1956; J2185; J3370; J3490; J7030

== ENCOUNTER → 2019-11-10 | Outpatient (CLI) | payer MEDICARE ==
[~2019-11-10] MED LIST changes: +APAP/CODEINE PO; +DOCU-272 PO; -ERGOCALCIFEROL PO; +HYOS-28 PO; -IRON PO; -citrucel PO
[2019-11-10 15:54] VITALS: BP 132/72
== END | disposition home or self-care (01) ==
LOC: WHH 13:15
PROVIDERS: ATTEND Specialist
DX: L02.214 Cutaneous abscess of groin (principal); I12.9 Hypertensive chronic kidney disease with stage 1 through stage 4 chronic kidney disease, or unspecified chronic kidney disease; N18.9 Chronic kidney disease, unspecified; E03.9 Hypothyroidism, unspecified; G30.9 Alzheimer's disease, unspecified; F02.80 Dementia in other diseases classified elsewhere, unspecified severity, without behavioral disturbance, psychotic disturbance, mood disturbance, and anxiety; F32.9 Major depressive disorder, single episode, unspecified; Z93.6 Other artificial openings of urinary tract status; Z85.51 Personal history of malignant neoplasm of bladder; Z85.46 Personal history of malignant neoplasm of prostate; Z88.8 Allergy status to other drugs, medicaments and biological substances; Z88.1 Allergy status to other antibiotic agents; Z79.899 Other long term (current) drug therapy; Z74.01 Bed confinement status
CPT/HCPCS: A6248; G0463

== ENCOUNTER → 2019-11-11 | Outpatient (CLI) | payer MEDICARE | END | disposition home or self-care (01) | LOC: WHH 13:30 | PROVIDERS: ATTEND Specialist | DX: L02.214 Cutaneous abscess of groin (principal); I12.9 Hypertensive chronic kidney disease with stage 1 through stage 4 chronic kidney disease, or unspecified chronic kidney disease; N18.9 Chronic kidney disease, unspecified; G30.9 Alzheimer's disease, unspecified; E03.9 Hypothyroidism, unspecified; F02.80 Dementia in other diseases classified elsewhere, unspecified severity, without behavioral disturbance, psychotic disturbance, mood disturbance, and anxiety; F32.9 Major depressive disorder, single episode, unspecified; Z93.6 Other artificial openings of urinary tract status; Z85.51 Personal history of malignant neoplasm of bladder; Z85.46 Personal history of malignant neoplasm of prostate; Z88.8 Allergy status to other drugs, medicaments and biological substances; Z88.1 Allergy status to other antibiotic agents; Z79.899 Other long term (current) drug therapy; Z74.01 Bed confinement status | CPT/HCPCS: 99211; G0463 ==

== ENCOUNTER → 2019-11-17 | Outpatient (CLI) | payer MEDICARE ==
[2019-11-17 14:57] VITALS: BP 109/50
== END | disposition home or self-care (01) ==
LOC: WHH 13:30
PROVIDERS: ATTEND Specialist
DX: L02.214 Cutaneous abscess of groin (principal); I12.9 Hypertensive chronic kidney disease with stage 1 through stage 4 chronic kidney disease, or unspecified chronic kidney disease; N18.9 Chronic kidney disease, unspecified; G30.9 Alzheimer's disease, unspecified; E03.9 Hypothyroidism, unspecified; F02.80 Dementia in other diseases classified elsewhere, unspecified severity, without behavioral disturbance, psychotic disturbance, mood disturbance, and anxiety; F32.9 Major depressive disorder, single episode, unspecified; Z93.6 Other artificial openings of urinary tract status; Z85.51 Personal history of malignant neoplasm of bladder; Z85.46 Personal history of malignant neoplasm of prostate; Z88.8 Allergy status to other drugs, medicaments and biological substances; Z88.1 Allergy status to other antibiotic agents; Z79.899 Other long term (current) drug therapy; Z74.01 Bed confinement status
CPT/HCPCS: 87070; 87077; 87186; G0463

== ENCOUNTER → 2019-11-24 | Outpatient (CLI) | payer MEDICARE ==
[2019-11-24 14:32] VITALS: BP 94/50; PULSE 62; RESP 16; TEMP 98.9
== END | disposition home or self-care (01) ==
LOC: WHH 13:30
PROVIDERS: ATTEND Specialist
DX: L02.214 Cutaneous abscess of groin (principal); I12.9 Hypertensive chronic kidney disease with stage 1 through stage 4 chronic kidney disease, or unspecified chronic kidney disease; N18.9 Chronic kidney disease, unspecified; E03.9 Hypothyroidism, unspecified; G30.9 Alzheimer's disease, unspecified; F02.80 Dementia in other diseases classified elsewhere, unspecified severity, without behavioral disturbance, psychotic disturbance, mood disturbance, and anxiety; F32.9 Major depressive disorder, single episode, unspecified; Z93.6 Other artificial openings of urinary tract status; Z85.51 Personal history of malignant neoplasm of bladder; Z85.46 Personal history of malignant neoplasm of prostate; Z88.8 Allergy status to other drugs, medicaments and biological substances; Z88.1 Allergy status to other antibiotic agents; Z79.899 Other long term (current) drug therapy; Z74.01 Bed confinement status

== ENCOUNTER → 2019-12-01 | Outpatient (CLI) | payer MEDICARE | END | disposition home or self-care (01) | LOC: WHH 14:00 | PROVIDERS: ATTEND Specialist | DX: T81.89XD Other complications of procedures, not elsewhere classified, subsequent encounter (principal); L02.214 Cutaneous abscess of groin; I12.9 Hypertensive chronic kidney disease with stage 1 through stage 4 chronic kidney disease, or unspecified chronic kidney disease; N18.9 Chronic kidney disease, unspecified; E03.9 Hypothyroidism, unspecified; G30.9 Alzheimer's disease, unspecified; F02.80 Dementia in other diseases classified elsewhere, unspecified severity, without behavioral disturbance, psychotic disturbance, mood disturbance, and anxiety; F32.9 Major depressive disorder, single episode, unspecified; Z93.6 Other artificial openings of urinary tract status; Z85.51 Personal history of malignant neoplasm of bladder; Z85.46 Personal history of malignant neoplasm of prostate; Z88.8 Allergy status to other drugs, medicaments and biological substances; Z88.1 Allergy status to other antibiotic agents; Z79.899 Other long term (current) drug therapy; Y83.8 Other surgical procedures as the cause of abnormal reaction of the patient, or of later complication, without mention of misadventure at the time of the procedure | CPT/HCPCS: A6248; G0463 ==

== ENCOUNTER → 2019-12-08 | Outpatient (CLI) | payer MEDICARE | END | disposition home or self-care (01) | LOC: WHH 13:30 | PROVIDERS: ATTEND Specialist | DX: L02.214 Cutaneous abscess of groin (principal); I12.9 Hypertensive chronic kidney disease with stage 1 through stage 4 chronic kidney disease, or unspecified chronic kidney disease; N18.9 Chronic kidney disease, unspecified; E03.9 Hypothyroidism, unspecified; G03.9 Meningitis, unspecified; G30.9 Alzheimer's disease, unspecified; F02.80 Dementia in other diseases classified elsewhere, unspecified severity, without behavioral disturbance, psychotic disturbance, mood disturbance, and anxiety; F32.9 Major depressive disorder, single episode, unspecified; Z93.6 Other artificial openings of urinary tract status; Z85.51 Personal history of malignant neoplasm of bladder; Z85.46 Personal history of malignant neoplasm of prostate; Z88.8 Allergy status to other drugs, medicaments and biological substances; Z88.1 Allergy status to other antibiotic agents; Z79.899 Other long term (current) drug therapy | CPT/HCPCS: A6248; G0463 ==

== ENCOUNTER 2019-12-15 13:30 | Outpatient (CLI) | payer MEDICARE | END 2019-12-15 15:13 | disposition home or self-care (01) | LOC: WHH 13:30 | PROVIDERS: ATTEND Specialist | DX: L02.214 Cutaneous abscess of groin (principal); I12.9 Hypertensive chronic kidney disease with stage 1 through stage 4 chronic kidney disease, or unspecified chronic kidney disease; N18.9 Chronic kidney disease, unspecified; E03.9 Hypothyroidism, unspecified; G30.9 Alzheimer's disease, unspecified; F02.80 Dementia in other diseases classified elsewhere, unspecified severity, without behavioral disturbance, psychotic disturbance, mood disturbance, and anxiety; F32.9 Major depressive disorder, single episode, unspecified; Z88.8 Allergy status to other drugs, medicaments and biological substances; Z88.1 Allergy status to other antibiotic agents; Z93.6 Other artificial openings of urinary tract status; Z79.899 Other long term (current) drug therapy; Z85.46 Personal history of malignant neoplasm of prostate; Z85.51 Personal history of malignant neoplasm of bladder | CPT/HCPCS: G0463 ==